=== PATIENT | female | born 1985 | race Caucasian/White ===

== ENCOUNTER 2023-06-24 16:54 | Emergency (ER) | payer MEDICAID, SELFPAY ==
--- NOTE | 2023-06-24 | ECG_ITS ---
Test Reason : bleach ingestion Blood Pressure : / mmHG Vent. Rate : 100 BPM Atrial Rate : 100 BPM P-R Int : 120 ms QRS Dur : 074 ms QT Int : 370 ms P-R-T Axes : 069 076 048 degrees QTc Int : 477 ms Normal sinus rhythm Possible Left atrial enlargement Borderline ECG When compared with ECG of 03-APR-2018 20:27, No significant change was found Referred By: Generic ED Physician Electronically Signed By:Joni Ruggiero
[2023-06-24 16:56] VITALS: BP 142/75; PULSE 109; RESP 18; TEMP 36.4; O2SAT 98; BMI 34.3
--- NOTE | 2023-06-24 17:13 | PC.NURSE ---
Posion control contacted, This RN spoke with Diego from poison control who requested labs and fluids at this time, and obs for 4-6 hours then PO challenge prior to DC.
--- NOTE | 2023-06-24 17:40 | ED.GENADULT ---
HPI - General Adult General Chief complaint: General Medical Stated complaint: drank bleach accidently Time Seen by Provider: 06/24/23 17:40 Source: patient Mode of arrival: ambulatory Limitations: no limitations History of Present Illness HPI narrative: Patient is a 37-year-old female presenting to the emergency department stating that she drank a small cup full of bleach thinking it was water. She estimates that it was approximately 4-6 oz. She states that it was regular household bleach. She currently denies any mouth, throat or abdominal pain. Denies any nausea, vomiting, diarrhea. She complains low back pain since the incident. She also complains of ?left lung pain? for the past 2 days. Poison control contacted by [employer] lead. complaint: bleach ingestion Onset (ago): minute(s) Treatments prior to arrival: none Related Data Allergies Allergy/AdvReac Type Severity Reaction Status Date / Time No Known Allergies Allergy Verified 06/24/23 17:00 [No Known Allergies*] Review of Systems Review of Systems: As per HPI. Yes all other systems are reviewed and are negative Constitutional: Constitutional: Reports as per HPI [facility] Social History Social History Advance Directives: No Advance Directives Information Provided: Yes Physical Exam ED Vital Signs: Vital Signs - 24 hr 06/24/23 16:56 Temperature 97.6 F Pulse Rate 109 H Respiratory Rate 18 Blood Pressure 142/75 H Pulse Oximetry 98 Oxygen Delivery Method Room Air BMI result Body Mass Index 34.3 Vital signs have been reviewed and appear to be correct. Blood pressure elevated. Heart rate mildly tachycardic. Respiratory rate normal. Temperature normal. Oxygen saturation normal. Const General: cooperative, healthy appearing and no acute distress Orientation/consciousness: oriented to person, oriented to place, oriented to time and patient oriented x3 Limitations: no limitations HENMT Other: no ulcerations or lesions noted to lips, tongue, or oral mucosa Head: Yes normocephalic and Yes atraumatic Ears: external ears normal General nose exam: Normal external nose present Face and sinus: Yes face symmetric Mouth: Normal oral and palatal mucosa present, lip normal, tongue normal, oropharynx normal, moist mucous membranes, no audible dysphonia, no drooling, no muffled voice, no trismus and No restricted motion Throat: Yes posterior oropharynx normal, Yes tonsils normal, Yes uvula midline and No uvular edema Eyes Pupils: Equal, round and reactive pupils present Neck Neck: Yes normal visual inspection, Yes full ROM, Yes trachea midline and Yes supple Resp Effort & Inspection: normal respiratory effort and able to speak in complete sentences Auscultation: clear to auscultation bilaterally Cardio Rate: regular rate Rhythm: regular rhythm Heart sounds: S1 normal heart sound present and S2 normal heart sound present GI Inspection: Yes normal to inspection Palpation (GI): Soft to palpation, nontender, no guarding and No Rebound tenderness present Auscultation: normoactive bowel sounds General: Yes no CVA tenderness Back/Spine/Pelvis Back: no CVA tenderness Thoracic/Lumbar Spine: thoracic and lumbar spine normal to inspection, thoraco-lumbar ROM normal, paraspinal muscle tenderness bilaterally in the upper lumbar and in the mid lumbar, No thoracic spinal tenderness and No lumbar spinal tenderness Skin General skin exam: elasticity normal and turgor normal Neuro General: oriented to person, oriented to place, oriented to time, patient oriented x3, moves all extremities, no focal motor deficits and CN's II-XI intact bilaterally Cranial nerves: Yes Equal, round and reactive pupils present Cognition (Neuro): normal cognition Extrem General: Yes full ROM, Yes no pedal edema and Yes no calf tenderness Psych Mental Status: mental status grossly normal Affect: normal affect Thought process: Normal thought process present Medical Decision Making Medical Decision Making MDM Narrative: Patient is a 37-year-old female presenting to the emergency department stating that she drank a small cup full of bleach thinking it was water. On exam patient is awake, A+Ox3, mildly tachycardic, BP mildly elevated, vital signs otherwise within normal limits, afebrile, normal neurological exam without focal deficits, physical exam findings as above. Given reported symptoms and physical exam findings, initial differential includes oral or esophageal burn injury. Kristen Núñez RN contacted poison control from triage. The recommendations were IV fluids, labs, monitoring for 4-6 hours, and PO fluid challenge prior to discharge. 18:06 Patient stating that she wishes to leave the department against medical advise. Patient advised of risks of leaving AMA up to and including . Patient verbalized understanding of this but refused to sign AMA paperwork. Differential Diagnosis Differential Diagnoses: The differential diagnosis associated with the presentation includes As per MDM. Admission/Observation Consideration of admission/observation: Escalation of care including admission/observation considered External Record Review External record reviewed: Inpatient record, Office record and Outpatient record Discharge Plan Discharge Clinical Impression: Ingestion of bleach Patient Disposition: Left Against Medical Advice
== END 2023-06-24 18:12 | disposition left against medical advice (07) ==
PROVIDERS: Emergency Provider Emergency Medicine Emergency Medical Services
DX: T54.91XA Toxic effect of unspecified corrosive substance, accidental (unintentional), initial encounter (principal); Y92.9 Unspecified place or not applicable; R00.0 Tachycardia, unspecified
CPT/HCPCS: 93005; 99283

== ENCOUNTER → 2023-06-24 17:31 | Outpatient (BNV) | payer MEDICAID, SELFPAY | PROVIDERS: Emergency Provider Emergency Medicine Emergency Medical Services; Visit Provider Internal Medicine Cardiovascular Disease | DX: R00.0 Tachycardia, unspecified (principal) | CPT/HCPCS: 93010 ==

== ENCOUNTER 2023-06-24 20:15 | Emergency (ER) | payer MEDICAID, SELFPAY ==
[2023-06-24 20:31] VITALS: BP 126/68; BP 142/102; PULSE 101; PULSE 96; RESP 18; TEMP 37; O2SAT 100; O2SAT 98; BMI 34.3
--- NOTE | 2023-06-24 21:36 | PC.NURSE ---
pt roaming halls, escorted back to room several times by this nurse, ED phlebotomy technician , and security. Pt requesting water. advised that she cannot have anything PO until evaluated by an MD.
--- NOTE | 2023-06-24 21:43 | PC.NURSE ---
pt continues to roam, unable to redirect back to exam room pt repeated stated that she needed to get air advised d/t pt privacy pt cannot be roaming hallways. pt retrieved belongings from room and exited department- charge aware
== END 2023-06-24 21:46 | disposition left against medical advice (07) ==
PROVIDERS: Emergency Provider Emergency Medicine
DX: M79.10 Myalgia, unspecified site (principal)
CPT/HCPCS: 99281

== ENCOUNTER 2023-06-24 21:59 | Emergency (ER) | payer MEDICAID, SELFPAY ==
[2023-06-24 22:02] VITALS: BP 127/70; PULSE 101; RESP 18; TEMP 36.5; O2SAT 97; BMI 35.6
[2023-06-24 22:35] LABS: MANUAL DIFF FLAG NO
[2023-06-24 22:37] LABS: Basophils Absolute Auto 0.1 X10*3/uL (0.0-0.2); Basophils Percent Auto 0.4 % (0-2); Eosinophils Absolute Auto 0.1 X10*3/uL (0.0-0.4); Eosinophils Percent Auto 0.5 % (0-4); Hematocrit 37.8 % (37.0-47.0); Imm Gran Abs Auto 0.03 X10*3/uL (0.00-0.03); Imm Gran Pct Auto 0.2 % (0.0-0.4); Lymphocytes Absolute Auto 4.1 X10*3/uL (1.2-4.9); Lymphocytes Percent Auto 32.7 % (20-40); Mean Corpuscular HGB Conc 34.4 g/dl (31.0-35.0); Mean Corpuscular Hemoglobin 31.5 pg (27.0-33.0); Mean Corpuscular Volume 91.5 fL (80.0-98.0); Mean Platelet Volume 8.8 fL (9.4-12.3); Monocytes Absolute Auto 1.1 X10*3/uL (0.1-1.2); Monocytes Percent Auto 9.1 % (2-11); Neutrophils Absolute Auto 7.1 x10*3/uL (2.0-8.3); Neutrophils Percent Auto 57.1 % (45-73); Platelet Count 259 X10*3/uL (160-400); Red Blood Count 4.13 X10*6/uL (4.20-5.50); Red Cell Distribution Width 12.7 % (11.0-16.0); White Blood Count 12.5 X10*3/uL (4.8-10.8)
[2023-06-24 22:52] LABS: Alanine Aminotransferase 86 U/L (0-31); Albumin Level 4.3 g/dL (3.5-5.0); Alkaline Phosphatase 73 U/L (39-117); Anion Gap 13 (12-20); Aspartate Amino Transferase 158 U/L (5-31); Blood Urea Nitrogen 18 mg/dL (9-16); Calcium 9.8 mg/dL (8.4-10.2); Carbon Dioxide 26 mmol/L (22-29); Chloride 104 mmol/L (96-108); Estimated Glomerular Filt Rate > 60; Glucose Random 105 mg/dL (60-115); Potassium 3.8 mmol/L (3.3-5.1); Sodium 139 mmol/L (135-145); Total Protein 7.4 g/dL (6.5-8.0)
[2023-06-24 22:53] LABS: COVID-19 Test Negative (Negative); IDNOW Serial# 08D9AD1C; IDNOW Serial# 152EDE1D; Influenza A Negative (Negative); Influenza B2 Negative (Negative)
[2023-06-24 23:20] LABS: Ethanol < 10 mg/dL
== END 2023-06-25 00:45 | disposition left against medical advice (07) ==
PROVIDERS: Emergency Provider Emergency Medicine Emergency Medical Services
DX: M79.10 Myalgia, unspecified site (principal); Z11.52 Encounter for screening for COVID-19; Z79.899 Other long term (current) drug therapy
CPT/HCPCS: 80053; 80307; 85025; 87502; 87635; 99281; 99283

== ENCOUNTER 2023-06-25 01:25 | Emergency (ER) | payer MEDICAID, SELFPAY ==
[2023-06-25 01:58] VITALS: BP 121/63; PULSE 95; RESP 16; TEMP 37.2; O2SAT 100; BMI 34.3
--- NOTE | 2023-06-25 02:26 | ED.GENADULT ---
HPI - General Adult General Chief complaint: General Medical Stated complaint: gen med Time Seen by Provider: 06/25/23 02:26 Source: patient Mode of arrival: ambulatory Limitations: no limitations History of Present Illness HPI narrative: Patient homeless been here 3 times in and out of the ER with multiple complaints labs were done at 22:00 which were stable Related Data Allergies Allergy/AdvReac Type Severity Reaction Status Date / Time No Known Allergies Allergy Verified 06/25/23 01:58 [No Known Allergies*] Review of Systems Review of Systems: Yes all other systems are reviewed and are negative [facility] Social History Social History Advance Directives: No Advance Directives Information Provided: No Physical Exam ED Vital Signs: Vital Signs - 24 hr 06/25/23 01:58 Temperature 98.9 F Pulse Rate 95 Respiratory Rate 16 Blood Pressure 121/63 Pulse Oximetry 100 Oxygen Delivery Method Room Air BMI result Body Mass Index 34.3 Appearance: Alert. Oriented X3. No acute distress. Eyes: PERRLA, No Nystagmus ENT: Pharynx normal. Oral Mucosa moist Neck: Normal inspection. Neck supple. CVS: Normal heart rate and rhythm. Pulses normal. Respiratory: No respiratory distress. Equal air entry bilateral, no wheezing/rales/rhonchi Abdomen: Soft and nontender. Bowel sounds are present, no mass palpable, no CVA tenderness Skin: Skin warm and dry. Normal skin color. Normal skin turgor. Extremities: No lower extremity edema. No calf tenderness Neuro: Oriented X 3. No motor deficit. No sensory deficit.No cerebellar signs , cranial nerves II-XII intact Medical Decision Making Medical Decision Making MDM Narrative: Patient homeless looking for place to stay in the night no active complaints lab was done during previous visit 2 hours ago which were normal patient to be discharged follow with social welfare research worker Discharge Plan Discharge Clinical Impression: Homeless Patient Disposition: Home, Self-Care Instructions: Normal Exam (ED) Additional Instructions: You Do not have any medical reason to stay in the ER
--- NOTE | 2023-06-25 02:41 | PC.NURSE ---
pt refused discharge saying I need to be checked out more> Security at bedside for assistance
== END 2023-06-25 02:46 | disposition home or self-care (01) ==
PROVIDERS: Emergency Provider Internal Medicine
DX: Z59.02 Unsheltered homelessness (principal)
CPT/HCPCS: 99282; 99284

== ENCOUNTER 2023-12-31 21:20 | Emergency (ER) | payer MEDICAID, SELFPAY ==
--- NOTE | ~2023-12-31 | XR_ITS ---
EXAMINATION: XR CHEST CLINICAL INFORMATION: Dyspnea and cough COMPARISON: None available. TECHNIQUE: Frontal view of the chest was obtained. FINDINGS: No significant abnormality is noted involving the heart, lungs, mediastinum, bony thorax or soft tissues. XR/XR chest 1V IMPRESSION: Unremarkable examination. Electronically signed by: Lyndon Sofia MD 12/31/2023 10:53 PM EDT
[2023-12-31 21:33] VITALS: BP 140/84; PULSE 104; RESP 20; TEMP 37.2; O2SAT 97; BMI 37.1
--- NOTE | 2023-12-31 21:38 | ECG_ITS ---
Test Reason : SOB Blood Pressure : / mmHG Vent. Rate : 109 BPM Atrial Rate : 109 BPM P-R Int : 124 ms QRS Dur : 082 ms QT Int : 352 ms P-R-T Axes : 075 086 030 degrees QTc Int : 474 ms Sinus tachycardia Nonspecific ST abnormality Abnormal ECG When compared with ECG of 24-JUN-2023 17:31, No significant change was found Referred By: Generic ED Physician Electronically Signed By:MARLENE BETTENCOURT
--- NOTE | 2023-12-31 21:59 | MHC.EDTECH ---
Patient brought into triage area,EKG taken per order and signed by provider,Labs/Sars/and Urine obtained and sent to lab.
[2023-12-31 22:01] LABS: MANUAL DIFF FLAG NO
[2023-12-31 22:02] LABS: Basophils Percent Auto 0.4 % (0-2); Eosinophils Absolute Auto 0.1 X10*3/uL (0.0-0.4); Eosinophils Percent Auto 0.5 % (0-4); Hematocrit 38.6 % (37.0-47.0); Hemoglobin 13.2 g/dl (12.0-16.0); Imm Gran Abs Auto 0.02 X10*3/uL (0.00-0.03); Imm Gran Pct Auto 0.2 % (0.0-0.4); Lymphocytes Absolute Auto 3.2 X10*3/uL (1.2-4.9); Lymphocytes Percent Auto 34.3 % (20-40); Mean Corpuscular HGB Conc 34.2 g/dl (31.0-35.0); Mean Corpuscular Volume 93.7 fL (80.0-98.0); Mean Platelet Volume 9.7 fL (9.4-12.3); Monocytes Absolute Auto 0.5 X10*3/uL (0.1-1.2); Monocytes Percent Auto 5.8 % (2-11); Neutrophils Absolute Auto 5.5 x10*3/uL (2.0-8.3); Neutrophils Percent Auto 58.8 % (45-73); Platelet Count 265 X10*3/uL (160-400); Red Blood Count 4.12 X10*6/uL (4.20-5.50); Red Cell Distribution Width 12.9 % (11.0-16.0); White Blood Count 9.4 X10*3/uL (4.8-10.8)
[2023-12-31 22:10] LABS: UPreg QC Valid YES; Urine Pregnancy NEGATIVE (NEGATIVE)
[2023-12-31 22:15] LABS: Anion Gap 16 (12-20); Blood Urea Nitrogen 11 mg/dL (9-16); Calcium 9.6 mg/dL (8.4-10.2); Carbon Dioxide 20 mmol/L (22-29); Chloride 109 mmol/L (96-108); Estimated Glomerular Filt Rate > 60; Glucose Random 120 mg/dL (60-115); Potassium 3.2 mmol/L (3.3-5.1); Sodium 142 mmol/L (135-145)
[2023-12-31 22:25] LABS: Troponin-I High Sensitivity < 2.7 ng/L (<3.5-17.0)
--- NOTE | 2023-12-31 22:30 | ED.SOB ---
HPI - SOB/Dyspnea General Chief Complaint: Dyspnea Stated Complaint: Difficulty breathing Time Seen by Provider: 12/31/23 22:01 Source: patient Mode of arrival: ambulatory Limitations: no limitations History of Present Illness ED Provider: chata TRUJILLO Narrative: Patient's history of asthma been feeling shortness of breath with chest tightness for last 4 days with occasional cough using inhaler without much relief denies any sick contact no history of coronary artery disease no history of PE Related Data Previous Rx's ?Medication ?Instructions ?Recorded albuterol sulfate 90 mcg/actuation 2 puff inhalation Q6H PRN 12/31/23 aerosol inhaler shortness of breath or wheezing #8.5 grams prednisone 20 mg tablet 40 mg (2 x 20 mg) PO DAILY #10 tabs 12/31/23 Allergies Allergy/AdvReac Type Severity Reaction Status Date / Time No Known Allergies Allergy Verified 12/31/23 21:35 [No Known Allergies*] Review of Systems Review of Systems: Yes all other systems are reviewed and are negative [facility] Social History Social History Advance Directives: No Advance Directives Information Provided: No Physical Exam Vital Signs: Vital Signs: Last Vital Signs Temp 99.0 F 12/31/23 23:37 Pulse 104 H 12/31/23 23:37 Resp 20 12/31/23 23:37 BP 140/84 H 12/31/23 23:37 Pulse Ox 97 12/31/23 23:37 O2 Del Method Room Air 12/31/23 23:37 BMI result Body Mass Index 37.1 Appearance: Alert. Oriented X3. No acute distress. Eyes: PERRLA, No Nystagmus ENT: Pharynx normal. Oral Mucosa moist Neck: Normal inspection. Neck supple. CVS: Normal heart rate and rhythm. Pulses normal. Respiratory: No respiratory distress. Equal air entry bilateral, prolonged expiration no rales Abdomen: Soft and nontender. Bowel sounds are present, no mass palpable, no CVA tenderness Skin: Skin warm and dry. Normal skin color. Normal skin turgor. Extremities: No lower extremity edema. No calf tenderness Neuro: Oriented X 3. No motor deficit. No sensory deficit.No cerebellar signs , cranial nerves II-XII intact Medications Administered Discontinued Medications Generic Name Dose Route Start Last Admin Trade Name Freq PRN Reason Stop Dose Admin Albuterol/Ipratropium 3 ml 12/31/23 22:29 12/31/23 22:49 Albuterol/Iprat 2.5/0.5mg 3 Ml Ampul.Neb INHALE 12/31/23 22:30 3 ml ONCE ONE Administration Prednisone 60 mg 12/31/23 22:29 12/31/23 22:34 Prednisone 20 Mg Tablet PO 12/31/23 22:30 60 mg ONCE ONE Administration Medical Decision Making Medical Decision Making [facility] Narrative: Patient with asthma with shortness a breath and chest tightness clinically patient is asthma low risk for PE patient ambulatory with saturating 95% at room air chest x-ray negative for pneumonia will prescribe prednisone and advised to continues use albuterol inhaler Differential Diagnosis Differential Diagnoses: The differential diagnosis associated with the presentation includes Asthma/viral infection/anxiety/PE Lab Data [facility] Lab Attestation statement: I reviewed the patient's lab results. 12/31/23 21:50 12/31/23 21:50 Labs: Lab Results 12/31/23 12/31/23 Range/Units 21:50 21:55 WBC 9.4 (4.8-10.8) X10*3/uL RBC 4.12 L (4.20-5.50) X10*6/uL Hgb 13.2 (12.0-16.0) g/dl Hct 38.6 (37.0-47.0) % MCV 93.7 (80.0-98.0) fL MCH 32.0 (27.0-33.0) pg MCHC 34.2 (31.0-35.0) g/dl RDW 12.9 (11.0-16.0) % Plt Count 265 (160-400) X10*3/uL MPV 9.7 (9.4-12.3) fL Immature Gran % (Auto) 0.2 (0.0-0.4) % Neut % (Auto) 58.8 (45-73) % Lymph % (Auto) 34.3 (20-40) % [place] % (Auto) 5.8 (2-11) % Eos % (Auto) 0.5 (0-4) % Baso % (Auto) 0.4 (0-2) % Lymph # (Auto) 3.2 (1.2-4.9) X10*3/uL [place] # (Auto) 0.5 (0.1-1.2) X10*3/uL Eos # (Auto) 0.1 (0.0-0.4) X10*3/uL Baso # (Auto) 0.0 (0.0-0.2) X10*3/uL Abs Immat Gran (auto) 0.02 (0.00-0.03) X10*3/uL Absolute Neuts (auto) 5.5 (2.0-8.3) x10*3/uL Absolute Nucleated RBC 0.000 (0.0-0.012) X10*3/uL Nucleated RBC % (auto) 0.0 (0.0-0.2) /100WBC Sodium 142 (135-145) mmol/L Potassium 3.2 L (3.3-5.1) mmol/L Chloride 109 H (96-108) mmol/L Carbon Dioxide 20 L (22-29) mmol/L Anion Gap 16 (12-20) BUN 11 (9-16) mg/dL Creatinine 0.85 (0.5-1.4) mg/dL Estim Creat Clear Calc 103.0 Estimated GFR > 60 Random Glucose 120 H (60-115) mg/dL Calcium 9.6 (8.4-10.2) mg/dL Troponin I High Sens < 2.7 (<3.5-17.0) ng/L Urine Test NEGATIVE (NEGATIVE) Influenza Type A (PCR) NEGATIVE (Negative) Influenza Type B (PCR) NEGATIVE (Negative) RSV RNA Qual (PCR) NEGATIVE (Negative) SARS-CoV-2 RNA (RT-PCR) NEGATIVE (Negative) Independent Interpretation I performed an independent interpretation of an: EKG Interpretation: Sinus tachycardia heart rate 109 beats per minute nonspecific STT wave changes no acute ischemic changes Radiology Impression Discussion of test interpretation with radiology: I have reviewed the radiologist's reading. Discharge Plan Discharge Clinical Impression: Asthma with exacerbation Patient Disposition: Home, Self-Care Instructions: Asthma (ED) Additional Instructions: Continue to use your albuterol 2 puffs every 4-6 hours as needed Prednisone as prescribed Follow with PCP as needed Prescriptions: New prednisone 20 mg tablet 40 mg PO DAILY Qty: 10 0RF albuterol sulfate 90 mcg/actuation HFA aerosol inhaler 2 puff inhalation Q6H PRN (Reason: shortness of breath or wheezing) Qty: 8.5 0RF Stand Alone Forms: Work/School Release Interventions: ED Discharge Assessment Last Done: 12/31/23 23:37 Discharge Date/Time: 12/31/23 23:38 Print Language: Macedonian
[2023-12-31] MEDS: predniSONE 20 MG TABLET 60 MG PO (22:34)
[2023-12-31 22:40] LABS: Influenza A PCR NEGATIVE (Negative); Influenza B PCR NEGATIVE (Negative); Resp Syncy Virus RNA Qual PCR NEGATIVE (Negative); SARS COV2 PCR INHOUSE NEGATIVE (Negative)
[2023-12-31] MEDS: Albuterol/Iprat 2.5/0.5MG 3 ML AMPUL.NEB INHALE (22:49)
[2023-12-31 23:37] VITALS: BP 140/84; PULSE 104; RESP 20; TEMP 37.2; O2SAT 97
== END 2023-12-31 23:38 | disposition home or self-care (01) ==
PROVIDERS: Emergency Provider Internal Medicine
DX: J45.901 Unspecified asthma with (acute) exacerbation (principal); R06.02 Shortness of breath; R07.89 Other chest pain; Z03.818 Encounter for observation for suspected exposure to other biological agents ruled out; Z79.899 Other long term (current) drug therapy
CPT/HCPCS: 0241U; 36415; 71045; 80048; 81025; 84484; 85025; 93005; 99283; 99284

== ENCOUNTER 2024-01-08 04:18 | Emergency (ER) | payer MEDICAID, SELFPAY ==
--- NOTE | ~2024-01-08 | XR_ITS ---
EXAMINATION: XR CHEST CLINICAL INFORMATION: Cough and difficulty breathing. COMPARISON: December 31, 2023. TECHNIQUE: Frontal view of the chest was obtained. FINDINGS: No significant abnormality is noted involving the heart, lungs, mediastinum, bony thorax or soft tissues. XR/XR chest 1V IMPRESSION: Unremarkable examination. Electronically signed by: Tommy Blanc MD 01/08/2024 05:03 AM EDT
[2024-01-08 04:26] VITALS: BP 122/77; PULSE 107; RESP 17; TEMP 36.9; O2SAT 93; BMI 35.4
[2024-01-08 05:23] LABS: Influenza A PCR NEGATIVE (Negative); Influenza B PCR NEGATIVE (Negative); Resp Syncy Virus RNA Qual PCR NEGATIVE (Negative); SARS COV2 PCR INHOUSE NEGATIVE (Negative)
[2024-01-08 06:02] VITALS: BP 126/72; PULSE 87; RESP 16; TEMP 36.8; O2SAT 95
[2024-01-08 07:23] LABS: MANUAL DIFF FLAG NO
[2024-01-08] MEDS: methylPREDNISolone Sod Succ 125 MG/2 ML VIAL 60 MG IVPUSH (07:23)
[2024-01-08 07:24] LABS: Basophils Percent Auto 0.4 % (0-2); Eosinophils Absolute Auto 0.3 X10*3/uL (0.0-0.4); Eosinophils Percent Auto 3.5 % (0-4); Hematocrit 42.6 % (37.0-47.0); Hemoglobin 14.2 g/dl (12.0-16.0); Imm Gran Abs Auto 0.02 X10*3/uL (0.00-0.03); Imm Gran Pct Auto 0.2 % (0.0-0.4); Lymphocytes Absolute Auto 1.9 X10*3/uL (1.2-4.9); Lymphocytes Percent Auto 22.4 % (20-40); Mean Corpuscular HGB Conc 33.3 g/dl (31.0-35.0); Mean Corpuscular Hemoglobin 31.4 pg (27.0-33.0); Mean Corpuscular Volume 94.2 fL (80.0-98.0); Mean Platelet Volume 9.8 fL (9.4-12.3); Monocytes Absolute Auto 0.7 X10*3/uL (0.1-1.2); Monocytes Percent Auto 8.7 % (2-11); Neutrophils Absolute Auto 5.4 x10*3/uL (2.0-8.3); Neutrophils Percent Auto 64.8 % (45-73); Platelet Count 236 X10*3/uL (160-400); Red Blood Count 4.52 X10*6/uL (4.20-5.50); Red Cell Distribution Width 13.2 % (11.0-16.0); White Blood Count 8.3 X10*3/uL (4.8-10.8)
[2024-01-08] MEDS: Albuterol/Iprat 2.5/0.5MG 3 ML AMPUL.NEB INHALE (07:29)
[2024-01-08 07:30] VITALS: PULSE 84; RESP 18; O2SAT 97
[2024-01-08 07:34] LABS: IDNOW Serial# 08D9AD1C; Strep A Nucleic Acid Negative (Negative)
[2024-01-08 07:43] LABS: Anion Gap 15 (12-20); Blood Urea Nitrogen 11 mg/dL (9-16); Calcium 9.7 mg/dL (8.4-10.2); Carbon Dioxide 23 mmol/L (22-29); Chloride 106 mmol/L (96-108); Creatinine Clr Calc Pharmacy 102.9; Estimated Glomerular Filt Rate > 60; Glucose Random 84 mg/dL (60-115); Potassium 3.8 mmol/L (3.3-5.1); Sodium 140 mmol/L (135-145)
--- NOTE | 2024-01-08 08:08 | ED.SOB ---
HPI - SOB/Dyspnea General Chief Complaint: Dyspnea Stated Complaint: Diff Breathing Asthma Time Seen by Provider: 01/08/24 06:33 Source: patient, RN notes reviewed and old records reviewed Mode of arrival: ambulatory History of Present Illness ED Provider: Barbi Alvarado PA-C [facility] Narrative: 38-year-old female with a past medical history of asthma presenting to the ED complaining of productive cough, SOB, chest discomfort when coughing x1 week. Patient was recently seen and treated in our ED on 12/30 for similar symptoms prescribed prednisone and albuterol inhaler which she was unable to chicken picker from pharmacy. Denies fever, chills, pedal edema, recent travel, sick contacts. Related Data Previous Rx's ?Medication ?Instructions ?Recorded albuterol sulfate 90 mcg/actuation 2 puff inhalation Q6H PRN 12/31/23 aerosol inhaler shortness of breath or wheezing #8.5 grams prednisone 20 mg tablet 40 mg (2 x 20 mg) PO DAILY #10 tabs 12/31/23 albuterol sulfate 90 mcg/actuation 2 puff inhalation Q4-6H PRN 01/08/24 aerosol inhaler shortness of breath or wheezing #6.7 grams hydrocortisone 0.5 % topical cream 1 appl topical BID PRN itching 01/08/24 #28.4 grams prednisone 20 mg tablet 40 mg (2 x 20 mg) PO DAILY 5 days 01/08/24 #10 tabs Allergies Allergy/AdvReac Type Severity Reaction Status Date / Time No Known Allergies Allergy Verified 01/08/24 04:29 [No Known Allergies*] Review of Systems Review of Systems: Yes all other systems are reviewed and are negative Constitutional: Constitutional: Reports as per [facility] Past Medical History Attestation statement: The following information was validated with the patient. Source: old records reviewed Social History Social History Advance Directives: No Advance Directives Information Provided: No Do you have a plan to hurt others: No Plan Patient : No Physical Exam Vital Signs: Vital Signs: Last Vital Signs Temp 98.2 F 01/08/24 06:02 Pulse 84 01/08/24 07:30 Resp 18 01/08/24 07:30 BP 126/72 01/08/24 06:02 Pulse Ox 95 01/08/24 06:02 O2 Del Method Room Air 01/08/24 06:02 BMI result Body Mass Index 35.4 Const: General: cooperative, healthy appearing and no acute distress Orientation/consciousness: patient oriented x3 Limitations: no limitations HEENT: Head: Yes normal to inspection and Yes atraumatic Ears: hearing grossly normal bilaterally General nose exam: Normal external nose present Face and sinus: Yes normal facial exam Mouth: Normal oral and palatal mucosa present Throat: Yes posterior oropharynx normal, Yes tonsils normal, Yes uvula midline, No uvula laterally displaced and No uvular edema Eyes: General: appearance normal, both eyes and all related structures EOM: EOMs intact bilaterally Neck: Neck: Yes normal visual inspection and Yes no meningeal signs Resp: Effort & Inspection: normal respiratory effort, no respiratory distress and no stridor Auscultation: wheezes expiratory wheezes and throughout Cardio: Rate: regular rate Heart sounds: S1 normal heart sound present and S2 normal heart sound present GI: Inspection: Yes normal to inspection Palpation (GI): Soft to palpation, nontender, no guarding and not rigid Skin: Rashes: no rashes Wounds: no wounds Neuro: General: patient oriented x3, tone normal and no meningeal signs Cranial nerves: Yes CN's II-XII intact bilaterally Gait exam (Neuro): Normal gait present Extrem: General: Yes normal to inspection, Yes no pedal edema and Yes no calf tenderness Course Course Course Narrative: -0812--no leukocytosis. Labs otherwise reassuring. Viral studies negative. Rapid strep negative. XR chest 1V IMPRESSION: Unremarkable examination. >0817--on re-evaluation after DuoNeb and IV Solu-Medrol patient reports symptomatic improvement, lungs CTA -patient never picked up prescription for prednisone/inhaler, will send additional prescription in case this is still not off the pharmacy. Discussed importance of compliance with medications. Patient also reports poison lavon to bilateral LE and right thigh, appreciable erythematous patches/crusting appreciated will send hydrocortisone cream Results discussed with patient including worrisome signs and symptoms and strict return precautions, and when to return to the emergency department. They verbalized understanding and feel safe for discharge at this time. Medications Administered Discontinued Medications Generic Name Dose Route Start Last Admin Trade Name Freq PRN Reason Stop Dose Admin Albuterol/Ipratropium 3 ml 01/08/24 07:07 01/08/24 07:29 Albuterol/Iprat 2.5/0.5mg 3 Ml Ampul.Neb INHALE 01/08/24 07:08 3 ml ONCE ONE Administration Methylprednisolone Sodium Succinate 60 mg 01/08/24 06:55 01/08/24 07:23 Methylprednisolone Sod Succ 125 Mg/2 Ml Vial IVPUSH 01/08/24 06:56 60 mg ONCE ONE Administration Medical Decision Making Medical Decision Making [facility] Narrative: 38-year-old female with a past medical history of asthma presenting to the ED complaining of productive cough, SOB, chest discomfort when coughing x1 week. On exam initially tachycardic, satting 93% on RA, diffuse expiratory wheeze appreciated. Concern for asthma exacerbation vs pneumonia vs viral illness. Lower suspicion for ACS/PE. Unlikely CHF Plan: EKG, labs, CXR, viral testing Please refer to course for remaining clinical decision making, interpretation of labs/imaging results, and discussions with consultants and/or family members. Differential Diagnosis Differential Diagnoses: The differential diagnosis associated with the presentation includes As above Admission/Observation Consideration of admission/observation: Escalation of care including admission/observation considered Lab Data [facility] Lab Attestation statement: I reviewed the patient's lab results. 01/08/24 07:16 01/08/24 07:16 Labs: Lab Results 01/08/24 01/08/24 Range/Units 04:39 07:16 WBC 8.3 (4.8-10.8) X10*3/uL RBC 4.52 (4.20-5.50) X10*6/uL Hgb 14.2 (12.0-16.0) g/dl Hct 42.6 (37.0-47.0) % MCV 94.2 (80.0-98.0) fL MCH 31.4 (27.0-33.0) pg MCHC 33.3 (31.0-35.0) g/dl RDW 13.2 (11.0-16.0) % Plt Count 236 (160-400) X10*3/uL MPV 9.8 (9.4-12.3) fL Immature Gran % (Auto) 0.2 (0.0-0.4) % Neut % (Auto) 64.8 (45-73) % Lymph % (Auto) 22.4 (20-40) % [place] % (Auto) 8.7 (2-11) % Eos % (Auto) 3.5 (0-4) % Baso % (Auto) 0.4 (0-2) % Lymph # (Auto) 1.9 (1.2-4.9) X10*3/uL [place] # (Auto) 0.7 (0.1-1.2) X10*3/uL Eos # (Auto) 0.3 (0.0-0.4) X10*3/uL Baso # (Auto) 0.0 (0.0-0.2) X10*3/uL Abs Immat Gran (auto) 0.02 (0.00-0.03) X10*3/uL Absolute Neuts (auto) 5.4 (2.0-8.3) x10*3/uL Absolute Nucleated RBC 0.000 (0.0-0.012) X10*3/uL Nucleated RBC % (auto) 0.0 (0.0-0.2) /100WBC Sodium 140 (135-145) mmol/L Potassium 3.8 (3.3-5.1) mmol/L Chloride 106 (96-108) mmol/L Carbon Dioxide 23 (22-29) mmol/L Anion Gap 15 (12-20) BUN 11 (9-16) mg/dL Creatinine 0.83 (0.5-1.4) mg/dL Estim Creat Clear Calc 102.9 Estimated GFR > 60 Random Glucose 84 (60-115) mg/dL Calcium 9.7 (8.4-10.2) mg/dL Influenza Type A (PCR) NEGATIVE (Negative) Influenza Type B (PCR) NEGATIVE (Negative) RSV RNA Qual (PCR) NEGATIVE (Negative) SARS-CoV-2 RNA (RT-PCR) NEGATIVE (Negative) S. pyogenes GrpA TERA Negative (Negative) Independent Interpretation I performed an independent interpretation of an: EKG (My interpretation EKG normal sinus rhythm rate of 92. UT interval 124. QTC 84. No significant change when compared to prior) and Plain X-Ray Radiology Impression Discussion of test interpretation with radiology: I have reviewed the radiologist's reading. External Record Review External record reviewed: Inpatient record, Office record, Outpatient record, Prior outpatient labs, Prior outpatient radiology, Primary care record and Outside ED record Tests considered The following testing was considered but not selected: As above Prescription Management I considered prescription management with: Other Chronic Conditions Patient?s care impacted by: Other (Asthma) Critical Care Time Critical Care Time Critical Care Time: Yes Total Critical Care Time: 35 Attestation: I have personally provided critical care time exclusive of time spent on separately billable procedures. Time includes review of lab data, radiology results, discussion with consultants, and monitoring for potential decompensation. Intervention performed as documented. Discharge Plan Discharge Clinical Impression: Asthma with exacerbation Patient Disposition: Home, Self-Care Instructions: Asthma (DC) Additional Instructions: Your blood work and x-ray are reassuring Please chicken picker prescriptions from the pharmacy, and take as prescribed Follow-up with her doctor If symptoms persist or worsening of constant worsening shortness of breath, fever/chills return to the ED Prescriptions: New hydrocortisone 0.5 % cream 1 appl topical BID PRN (Reason: itching) Qty: 28.4 0RF prednisone 20 mg tablet 40 mg PO DAILY 5 Days Qty: 10 0RF albuterol sulfate 90 mcg/actuation HFA aerosol inhaler 2 puff inhalation Q4-6H PRN (Reason: shortness of breath or wheezing) Qty: 6.7 0RF No Action prednisone 20 mg tablet 40 mg PO DAILY Qty: 10 0RF albuterol sulfate 90 mcg/actuation HFA aerosol inhaler 2 puff inhalation Q6H PRN (Reason: shortness of breath or wheezing) Qty: 8.5 0RF Referrals: [facility] [place] Primary [facility], [facility] [Provider Group] [facility] [place] Primary Care,[facility] [Provider Group] Physician,None [Primary Care Provider] - Print Language: Israeli
--- NOTE | 2024-01-08 08:11 | ECG_ITS ---
Test Reason : SOB Blood Pressure : / mmHG Vent. Rate : 092 BPM Atrial Rate : 092 BPM P-R Int : 124 ms QRS Dur : 084 ms QT Int : 372 ms P-R-T Axes : 074 081 -44 degrees QTc Int : 460 ms Normal sinus rhythm Biatrial enlargement Nonspecific ST and T wave abnormality Abnormal ECG When compared with ECG of 31-DEC-2023 21:38, T wave amplitude has decreased in Lateral leads Referred By: Barbi Alvarado Electronically Signed By:MARLENE BETTENCOURT
[2024-01-08 08:40] VITALS: BP 145/75; PULSE 88; RESP 19; TEMP 36.6; O2SAT 98
== END 2024-01-08 08:42 | disposition home or self-care (01) ==
PROVIDERS: Physician Assistant; Emergency Provider Emergency Medicine
DX: J45.901 Unspecified asthma with (acute) exacerbation (principal); R05.9 Cough, unspecified; Z03.818 Encounter for observation for suspected exposure to other biological agents ruled out
CPT/HCPCS: 0241U; 71045; 80048; 85025; 87651; 93005; 94640; 96374; 99284; 99285; J2919

== ENCOUNTER 2024-01-22 13:49 | Emergency (ER) | payer MEDICAID, SELFPAY ==
[2024-01-22 14:19] VITALS: BP 118/87; PULSE 79; RESP 18; TEMP 36.4; O2SAT 99; BMI 37.8
--- NOTE | 2024-01-22 14:23 | ED_ITS ---
HPI - Extremity Problem General Chief complaint: Extremity Injury, Lower Stated complaint: swollen feet Time Seen by Provider: 01/22/24 14:46 Source: patient Mode of arrival: ambulatory Limitations: no limitations History of Present Illness ED Provider: Kaye Todd PA-C HPI Narrative: 38 yo female presents to the ER for evaluation of redness and swelling to her toes and feet for the last 2-3 days. history of cellulitis that presented in a similar way in the past. she denies and trauma or injury. no IV drug use. no hx DM. she reports redness and pain started in the bilateral great toes, mostly on the bottom of the foot and then radiated to the top of the foot. no open wounds. no joint swelling. no hx gout. MD Complaint: extremity pain and extremity swelling Onset (ago): day(s) (3) Pain Consistency: constant Location: toe Quality: aching Radiation: proximal Relieving factors: nothing Exacerbating factors: nothing Associated symptoms: denies other symptoms Related Data Previous Rx's ?Medication ?Instructions ?Recorded albuterol sulfate 90 mcg/actuation 2 puff inhalation Q6H PRN 12/31/23 aerosol inhaler shortness of breath or wheezing #8.5 grams prednisone 20 mg tablet 40 mg (2 x 20 mg) PO DAILY #10 tabs 12/31/23 albuterol sulfate 90 mcg/actuation 2 puff inhalation Q4-6H PRN 01/08/24 aerosol inhaler shortness of breath or wheezing #6.7 grams hydrocortisone 0.5 % topical cream 1 appl topical BID PRN itching 01/08/24 #28.4 grams prednisone 20 mg tablet 40 mg (2 x 20 mg) PO DAILY 5 days 01/08/24 #10 tabs benzonatate 100 mg capsule 100 mg PO TID PRN cough #30 caps 01/22/24 cephalexin 500 mg capsule 500 mg PO Q6H 7 days #28 caps 01/22/24 doxycycline monohydrate 100 mg 100 mg PO BID #14 caps 01/22/24 capsule Allergies Allergy/AdvReac Type Severity Reaction Status Date / Time No Known Allergies Allergy Verified 01/22/24 14:22 [No Known Allergies*] Review of Systems Review of Systems: Yes all other systems are reviewed and are negative PMFSH Social History Social History Advance Directives: No Do you have a plan to hurt others: No Plan Physical Exam Vital Signs: Vital Signs: Last Vital Signs Temp 97.6 F 01/22/24 14:19 Pulse 79 01/22/24 14:19 Resp 18 01/22/24 14:19 BP 118/87 01/22/24 14:19 Pulse Ox 99 01/22/24 14:19 O2 Del Method Room Air 01/22/24 14:19 BMI result Body Mass Index 37.8 Appearance: Alert. Oriented X3. No acute distress. HEENT: normal inspection CVS: Normal heart rate and rhythm. Pulses normal. Respiratory: No respiratory distress. Skin: Skin warm and dry. Normal skin color. Normal skin turgor. No rashes. Extremities: bilateral great toe redness and tenderness of the plantar aspect, no MTP tenderness. normal pulses. no significant swelling. Neuro: Oriented X 3. No motor deficit. No sensory deficit. Medical Decision Making Medical Decision Making MDM Narrative: 38 y/o female with history of cellulitis on her feet presenting to the ER for evaluation of 2-3 days of toe and foot redness, swelling and pain, no trauma. no evidence of gout on exam. no significant tenderness or limited ROM. no open wounds. will treat for possible early cellulitis. return precautions discussed. stable for d/c home. Differential Diagnosis Differential Diagnoses: The differential diagnosis associated with the presentation includes cellulitis, gout, PVD, PAD, septic joint, RA External Record Review External record reviewed: Outpatient record and Prior outpatient labs Tests considered The following testing was considered but not selected: xr feet considered, no trauma Prescription Management I considered prescription management with: Pain Medication and Antibiotic Critical Care Time Critical Care Time Critical Care Time: No Discharge Plan Discharge Clinical Impression: Cellulitis Qualifiers: Site of cellulitis: extremity Site of cellulitis of extremity: toe Laterality: unspecified laterality Qualified Code(s): L03.039 - Cellulitis of unspecified toe Patient Disposition: Home, Self-Care Instructions: Cellulitis (DC), Warm Compress or Soak (ED) Additional Instructions: Take the prescribed antibiotics as directed, complete the entire course and do not miss any doses Use warm soapy soaks for the next 3 days Elevate your feet when able. Rest and drink plenty of fluids. Follow up with your doctor If you develop new or worsening symptoms call 911 or come back to the ER for further evaluation. Prescriptions: New cephalexin 500 mg capsule 500 mg PO Q6H 7 Days Qty: 28 0RF doxycycline monohydrate 100 mg capsule 100 mg PO BID Qty: 14 0RF benzonatate 100 mg capsule 100 mg PO TID PRN (Reason: cough) Qty: 30 0RF No Action prednisone 20 mg tablet 40 mg PO DAILY Qty: 10 0RF albuterol sulfate 90 mcg/actuation HFA aerosol inhaler 2 puff inhalation Q6H PRN (Reason: shortness of breath or wheezing) Qty: 8.5 0RF hydrocortisone 0.5 % cream 1 appl topical BID PRN (Reason: itching) Qty: 28.4 0RF prednisone 20 mg tablet 40 mg PO DAILY 5 Days Qty: 10 0RF albuterol sulfate 90 mcg/actuation HFA aerosol inhaler 2 puff inhalation Q4-6H PRN (Reason: shortness of breath or wheezing) Qty: 6.7 0RF Referrals: [facility] [Provider Group] [facility] [place] [facility]] Stand Alone Forms: Work/School Release Print Language: Icelandic
== END 2024-01-22 15:23 | disposition home or self-care (01) ==
PROVIDERS: Emergency Provider Student in an Organized Health Care Education/Training Program
DX: L03.039 Cellulitis of unspecified toe (principal); R60.0 Localized edema
CPT/HCPCS: 99281; 99282

== ENCOUNTER 2024-02-03 15:36 | Emergency (ER) | payer MEDICAID, SELFPAY ==
--- NOTE | ~2024-02-03 | XR_ITS ---
EXAMINATION: XR CHEST CLINICAL INFORMATION: 38-year-old female with cough COMPARISON: January 08, 2024 TECHNIQUE: 2 views of the chest were obtained. FINDINGS: No significant abnormality is noted involving the heart, lungs, mediastinum, bony thorax or soft tissues. XR/XR chest 2V IMPRESSION: Unremarkable examination. No interval change Electronically signed by: Faviola Jensen MD 02/03/2024 05:47 PM EDT RP
--- NOTE | 2024-02-03 16:08 | ED_ITS ---
HPI - General Adult General Chief complaint: Upper Respiratory Symptoms Stated complaint: Spitting up a lot of fluid Time Seen by Provider: 02/03/24 19:54 History of Present Illness HPI narrative: Patient complains of 1 week of worsening productive cough accompanied by frequent wheezing typical of her asthma, she says she has a mild sore throat body aches may have had a fever but not sure She used her albuterol inhaler just prior to arrival and said it has been helpful but it wears off and right now she is not short of breath and does not feel like she is wheezing Denies nausea vomiting or diarrhea denies any rash no chest pain Related Data Previous Rx's ?Medication ?Instructions ?Recorded albuterol sulfate 90 mcg/actuation 2 puff inhalation Q6H PRN 12/31/23 aerosol inhaler shortness of breath or wheezing #8.5 grams prednisone 20 mg tablet 40 mg (2 x 20 mg) PO DAILY #10 tabs 12/31/23 albuterol sulfate 90 mcg/actuation 2 puff inhalation Q4-6H PRN 01/08/24 aerosol inhaler shortness of breath or wheezing #6.7 grams hydrocortisone 0.5 % topical cream 1 appl topical BID PRN itching 01/08/24 #28.4 grams prednisone 20 mg tablet 40 mg (2 x 20 mg) PO DAILY 5 days 01/08/24 #10 tabs benzonatate 100 mg capsule 100 mg PO TID PRN cough #30 caps 01/22/24 cephalexin 500 mg capsule 500 mg PO Q6H 7 days #28 caps 01/22/24 doxycycline monohydrate 100 mg 100 mg PO BID #14 caps 01/22/24 capsule albuterol sulfate 90 mcg/actuation 2 puff inhalation Q4-6H PRN 02/03/24 aerosol inhaler shortness of breath or wheezing #8.5 grams azithromycin 250 mg tablet 250 mg PO DAILY 4 days #4 tabs 02/03/24 benzonatate 200 mg capsule 200 mg PO BID PRN cough #14 caps 02/03/24 prednisone 20 mg tablet 60 mg (3 x 20 mg) PO DAILY 5 days 02/03/24 #15 tabs Allergies Allergy/AdvReac Type Severity Reaction Status Date / Time No Known Allergies Allergy Verified 02/03/24 16:10 [No Known Allergies*] [facility] Past Medical History Source: nursing notes reviewed Social History Social History Advance Directives: No Advance Directives Information Provided: No Physical Exam ED Vital Signs: Vital Signs - 24 hr 02/03/24 16:09 Temperature 98.3 F Pulse Rate 99 Respiratory Rate 18 Blood Pressure 111/68 Pulse Oximetry 98 Oxygen Delivery Method Room Air BMI result Body Mass Index 35.3 General appearance comfortable cooperative no acute distress speaking full sentences The eyes no redness or discharge The pharynx is clear without redness swelling or exudate membranes moist The neck is supple The chest is clear to auscultation with symmetrical equal breath sounds no wheezing or adventitious sounds heard Heart no murmur Abdomen soft nontender Extremities full range of motion x4 No calf tenderness no calf swelling no leg swelling Course Course Course Narrative: This is an RME: Additional HPI, ROS, PE not included below will be deferred to primary provider. RME assessment and note performed by: Ramila Manley PA-C This is a 38 year old female, with a hx of asthma, who presents to the ER with complaints of congestion, productive cough with green colored sputum, and chest pain. Vital signs stable. She is nontoxic appearing, speaking in full sentences under no distress. Plan: Labs, EKG, chest x-ray, further ER evaluation needed. Patient with productive cough and upper respiratory symptoms for a week and feels like it is worsening with frequent MDI use for her wheezing from her asthma CBC and chemistry were nondiagnostic including a troponin of 2.7 normal, EKG was a normal sinus rhythm with out any acute ST changes no acute ischemic changes normal QT Patient is treated for bronchitis with Zithromax, her asthma is treated with prednisone and she is discharged breathing easily ambulating easily Medical Decision Making Lab Data [facility] Lab Attestation statement: I reviewed the patient's lab results. 02/03/24 19:59 02/03/24 19:59 Labs: Lab Results 02/03/24 02/03/24 Range/Units 16:33 19:59 WBC 10.7 (4.8-10.8) X10*3/uL RBC 4.48 (4.20-5.50) X10*6/uL Hgb 14.0 (12.0-16.0) g/dl Hct 43.1 (37.0-47.0) % MCV 96.2 (80.0-98.0) fL MCH 31.3 (27.0-33.0) pg MCHC 32.5 (31.0-35.0) g/dl RDW 13.2 (11.0-16.0) % Plt Count 267 (160-400) X10*3/uL MPV 9.8 (9.4-12.3) fL Immature Gran % (Auto) 0.2 (0.0-0.4) % Neut % (Auto) 58.6 (45-73) % Lymph % (Auto) 34.5 (20-40) % [place] % (Auto) 5.6 (2-11) % Eos % (Auto) 0.8 (0-4) % Baso % (Auto) 0.3 (0-2) % Lymph # (Auto) 3.7 (1.2-4.9) X10*3/uL [place] # (Auto) 0.6 (0.1-1.2) X10*3/uL Eos # (Auto) 0.1 (0.0-0.4) X10*3/uL Baso # (Auto) 0.0 (0.0-0.2) X10*3/uL Abs Immat Gran (auto) 0.02 (0.00-0.03) X10*3/uL Absolute Neuts (auto) 6.2 (2.0-8.3) x10*3/uL Absolute Nucleated RBC 0.000 (0.0-0.012) X10*3/uL Nucleated RBC % (auto) 0.0 (0.0-0.2) /100WBC Sodium 143 (135-145) mmol/L Potassium 4.4 (3.3-5.1) mmol/L Chloride 108 (96-108) mmol/L Carbon Dioxide 25 (22-29) mmol/L Anion Gap 14 (12-20) BUN 12 (9-16) mg/dL Creatinine 0.89 (0.5-1.4) mg/dL Estim Creat Clear Calc 95.9 Estimated GFR > 60 Random Glucose 125 H (60-115) mg/dL Calcium 9.9 (8.4-10.2) mg/dL Total Bilirubin 1.3 H (0.0-1.0) mg/dL Direct Bilirubin 0.5 (0.0-0.5) mg/dL AST 16 (5-31) U/L ALT 16 (0-31) U/L Alkaline Phosphatase 64 (39-117) U/L Troponin I High Sens < 2.7 (<3.5-17.0) ng/L Total Protein 7.5 (6.5-8.0) g/dL Albumin 4.4 (3.5-5.0) g/dL Beta HCG, Quant < 2 mIU/mL Influenza Type A (PCR) NEGATIVE (Negative) Influenza Type B (PCR) NEGATIVE (Negative) RSV RNA Qual (PCR) NEGATIVE (Negative) SARS-CoV-2 RNA (RT-PCR) NEGATIVE (Negative) Discharge Plan Discharge Clinical Impression: Bronchitis Patient Disposition: Home, Self-Care Additional Instructions: Chest x-ray and labs were okay, COVID test was negative We are treating bronchitis with Zithromax antibiotic We are treating asthma with prednisone and albuterol Return any time for difficulty breathing any worse condition or any concerns Prescriptions: New azithromycin 250 mg tablet 250 mg PO DAILY 4 Days Qty: 4 0RF Rx Instructions: start on day 2 of therapy prednisone 20 mg tablet 60 mg PO DAILY 5 Days Qty: 15 0RF albuterol sulfate 90 mcg/actuation HFA aerosol inhaler 2 puff inhalation Q4-6H PRN (Reason: shortness of breath or wheezing) Qty: 8.5 0RF benzonatate 200 mg capsule 200 mg PO BID PRN (Reason: cough) Qty: 14 0RF No Action prednisone 20 mg tablet 40 mg PO DAILY Qty: 10 0RF albuterol sulfate 90 mcg/actuation HFA aerosol inhaler 2 puff inhalation Q6H PRN (Reason: shortness of breath or wheezing) Qty: 8.5 0RF hydrocortisone 0.5 % cream 1 appl topical BID PRN (Reason: itching) Qty: 28.4 0RF prednisone 20 mg tablet 40 mg PO DAILY 5 Days Qty: 10 0RF albuterol sulfate 90 mcg/actuation HFA aerosol inhaler 2 puff inhalation Q4-6H PRN (Reason: shortness of breath or wheezing) Qty: 6.7 0RF cephalexin 500 mg capsule 500 mg PO Q6H 7 Days Qty: 28 0RF doxycycline monohydrate 100 mg capsule 100 mg PO BID Qty: 14 0RF benzonatate 100 mg capsule 100 mg PO TID PRN (Reason: cough) Qty: 30 0RF Print Language: Malagasy
[2024-02-03 16:09] VITALS: BP 111/68; PULSE 99; RESP 18; TEMP 36.8; O2SAT 98; BMI 35.3
--- NOTE | 2024-02-03 16:11 | ECG_ITS ---
Test Reason : chest pain Blood Pressure : / mmHG Vent. Rate : 088 BPM Atrial Rate : 088 BPM P-R Int : 120 ms QRS Dur : 078 ms QT Int : 374 ms P-R-T Axes : 078 078 043 degrees QTc Int : 452 ms Normal sinus rhythm Right atrial enlargement Borderline ECG When compared with ECG of 08-JAN-2024 08:27, Nonspecific T wave abnormality no longer evident in Lateral leads Referred By: Ramila Manley Electronically Signed By:MICHELLE POLK
[2024-02-03 17:42] LABS: Influenza A PCR NEGATIVE (Negative); Influenza B PCR NEGATIVE (Negative); Resp Syncy Virus RNA Qual PCR NEGATIVE (Negative); SARS COV2 PCR INHOUSE NEGATIVE (Negative)
[2024-02-03 20:03] LABS: MANUAL DIFF FLAG NO
[2024-02-03 20:07] LABS: Basophils Percent Auto 0.3 % (0-2); Eosinophils Absolute Auto 0.1 X10*3/uL (0.0-0.4); Eosinophils Percent Auto 0.8 % (0-4); Hematocrit 43.1 % (37.0-47.0); Imm Gran Abs Auto 0.02 X10*3/uL (0.00-0.03); Imm Gran Pct Auto 0.2 % (0.0-0.4); Lymphocytes Absolute Auto 3.7 X10*3/uL (1.2-4.9); Lymphocytes Percent Auto 34.5 % (20-40); Mean Corpuscular HGB Conc 32.5 g/dl (31.0-35.0); Mean Corpuscular Hemoglobin 31.3 pg (27.0-33.0); Mean Corpuscular Volume 96.2 fL (80.0-98.0); Mean Platelet Volume 9.8 fL (9.4-12.3); Monocytes Absolute Auto 0.6 X10*3/uL (0.1-1.2); Monocytes Percent Auto 5.6 % (2-11); Neutrophils Absolute Auto 6.2 x10*3/uL (2.0-8.3); Neutrophils Percent Auto 58.6 % (45-73); Platelet Count 267 X10*3/uL (160-400); Red Blood Count 4.48 X10*6/uL (4.20-5.50); Red Cell Distribution Width 13.2 % (11.0-16.0); White Blood Count 10.7 X10*3/uL (4.8-10.8)
[2024-02-03 20:26] LABS: Alanine Aminotransferase 16 U/L (0-31); Albumin Level 4.4 g/dL (3.5-5.0); Alkaline Phosphatase 64 U/L (39-117); Anion Gap 14 (12-20); Aspartate Amino Transferase 16 U/L (5-31); Bilirubin Direct 0.5 mg/dL (0.0-0.5); Bilirubin Total 1.3 mg/dL (0.0-1.0); Blood Urea Nitrogen 12 mg/dL (9-16); Calcium 9.9 mg/dL (8.4-10.2); Carbon Dioxide 25 mmol/L (22-29); Chloride 108 mmol/L (96-108); Creatinine Clr Calc Pharmacy 95.9; Estimated Glomerular Filt Rate > 60; Glucose Random 125 mg/dL (60-115); Potassium 4.4 mmol/L (3.3-5.1); Sodium 143 mmol/L (135-145); Total Protein 7.5 g/dL (6.5-8.0)
[2024-02-03 20:28] LABS: HCG Quantitative < 2 mIU/mL
[2024-02-03 20:32] LABS: Troponin-I High Sensitivity < 2.7 ng/L (<3.5-17.0)
[2024-02-03 21:23] VITALS: BP 107/55; PULSE 89; RESP 18; TEMP 36.3; O2SAT 98
[2024-02-03] MEDS: Azithromycin 500 MG TABLET PO (21:28)
[2024-02-03] MEDS: predniSONE 20 MG TABLET 60 MG PO (21:28)
[2024-02-03 21:29] VITALS: BP 107/55; PULSE 89; RESP 18; TEMP 36.3; O2SAT 98
== END 2024-02-03 21:37 | disposition home or self-care (01) ==
PROVIDERS: Physician Assistant Medical; Emergency Provider Emergency Medicine
DX: J40 Bronchitis, not specified as acute or chronic (principal); R07.89 Other chest pain; Z03.818 Encounter for observation for suspected exposure to other biological agents ruled out; Z79.899 Other long term (current) drug therapy
CPT/HCPCS: 0241U; 36415; 71046; 80048; 80076; 84484; 84702; 85025; 93005; 99283; 99284

== ENCOUNTER → 2024-02-03 16:11 | Outpatient (BNV) | payer MEDICAID, SELFPAY | PROVIDERS: Emergency Provider Emergency Medicine; Visit Provider Internal Medicine | DX: R07.9 Chest pain, unspecified (principal); R94.31 Abnormal electrocardiogram [ECG] [EKG] | CPT/HCPCS: 93010 ==

== ENCOUNTER 2024-02-10 22:38 | Inpatient (IN) | payer MEDICAID, OTHER, SELFPAY ==
[2024-02-10 22:57] VITALS: BP 118/75; PULSE 76; RESP 14; TEMP 36.5; O2SAT 98; BMI 36.1
--- NOTE | 2024-02-10 23:12 | PC.NURSE ---
client changed over by this lyric writer and no evidence of contraband or injury to person
--- NOTE | 2024-02-11 00:13 | ED_ITS ---
HPI - Psych General Chief Complaint: Psychiatric Symptoms Stated Complaint: Crisis Time Seen by Provider: 02/10/24 23:41 Source: patient Mode of arrival: ambulatory Limitations: no limitations History of Present Illness HPI Narrative: Patient is a 38-year-old female who presents emergency department for evaluation. She is endorsing suicidal ideations with a plan to cut herself. She reports increasing depression, not showering or taking care of herself as she knows she should over the past 2 weeks. States about 2 months ago she moved into a friend's house was previously residing with her aunt and uncle, reports that her children are not currently in her care but feels they are in a safe place, does not disclose with whom they are staying with. She is not taking any medications and does not have any community resources such as a therapist or psychiatrist. She reports that [birth year] is the birthday of her children's father, states that he tried typically 4 years ago due to COVID-19, and she was actively at that time. Soon after that time she reports that she did attempt to overdose herself on heroin as a suicide attempt, resulting in an inpatient admission to [facility] for some time. She reports no further psychiatric admissions since then. She denies any current recreational drug or alcohol usage, she is not on any Suboxone or methadone. She offers no physical complaints at this time. Related Data Previous Rx's ?Medication ?Instructions ?Recorded albuterol sulfate 90 mcg/actuation 2 puff inhalation Q6H PRN 12/31/23 aerosol inhaler shortness of breath or wheezing #8.5 grams prednisone 20 mg tablet 40 mg (2 x 20 mg) PO DAILY #10 tabs 12/31/23 albuterol sulfate 90 mcg/actuation 2 puff inhalation Q4-6H PRN 01/08/24 aerosol inhaler shortness of breath or wheezing #6.7 grams hydrocortisone 0.5 % topical cream 1 appl topical BID PRN itching 01/08/24 #28.4 grams prednisone 20 mg tablet 40 mg (2 x 20 mg) PO DAILY 5 days 01/08/24 #10 tabs benzonatate 100 mg capsule 100 mg PO TID PRN cough #30 caps 01/22/24 cephalexin 500 mg capsule 500 mg PO Q6H 7 days #28 caps 01/22/24 doxycycline monohydrate 100 mg 100 mg PO BID #14 caps 01/22/24 capsule albuterol sulfate 90 mcg/actuation 2 puff inhalation Q4-6H PRN 02/03/24 aerosol inhaler shortness of breath or wheezing #8.5 grams azithromycin 250 mg tablet 250 mg PO DAILY 4 days #4 tabs 02/03/24 benzonatate 200 mg capsule 200 mg PO BID PRN cough #14 caps 02/03/24 prednisone 20 mg tablet 60 mg (3 x 20 mg) PO DAILY 5 days 02/03/24 #15 tabs Allergies Allergy/AdvReac Type Severity Reaction Status Date / Time No Known Allergies Allergy Verified 02/10/24 22:58 [No Known Allergies*] Review of Systems 2 Review of Systems: Yes all other systems are reviewed and are negative PMFSH Past Medical History Attestation statement: The following information was validated with the patient. Source: old records reviewed Social History Social History Advance Directives: No Advance Directives Information Provided: Yes Do you have a plan to hurt others: No Plan Physical Exam 2 Vital Signs: Vital Signs: Last Vital Signs Temp 97.7 F 02/10/24 22:57 Pulse 76 02/10/24 22:57 Resp 14 02/10/24 22:57 BP 118/75 02/10/24 22:57 Pulse Ox 98 02/10/24 22:57 O2 Del Method Room Air 02/10/24 22:57 BMI result Body Mass Index 36.1 Appearance: Alert.?Oriented to person, place and time. No acute distress.?Normal affect. Eyes: Pupils equal, round and reactive to light.? ENT: Pharynx normal.?? Neck: Normal inspection.? Neck supple.?? CVS: Heart sounds normal. Normal heart rate and rhythm.? Pulses normal.?? Respiratory: No respiratory distress.? Lung sounds clear to auscultation bilaterally?? Abdomen: Soft and non-tender. Normoactive bowel sounds. Skin: Skin warm and dry.? Normal skin color.? Extremities: No lower extremity edema.? Neuro: Moves all extremities spontaneously. Sensation intact bilaterally. CN II- XII intact. No focal neuro deficits. Ambulates with normal steady gait. Medical Decision Making Medical Decision Making MDM Narrative: Patient is a 38-year-old female who presents emergency department for evaluation of SI with a plan as per HPI. Her enema physical exam benign, calm and cooperative at the time of my evaluation. She offers no physical complaints at this time. She overall appears well, nontoxic, afebrile. Will obtain basic labs for medical clearance and refer to care team Differential Diagnosis Differential Diagnoses: The differential diagnosis associated with the presentation includes (See narrative above and below) Admission/Observation Consideration of admission/observation: Escalation of care including admission/observation considered Patient is being observed in the Emergency Department for depression and anxiety. Observation time was started at 00:26 on 02/11/2024?The patient is currently stable and non-toxic appearing. Observation is being initiated in the Emergency Department to allow time to help differentiate if the patient's depression and anxiety is due to Substance Induced Mood Disorder and Anxiety versus Major Depressive Disorder, Bipolar Shanel, Bipolar Depression, and Schizophrenia. The patient will receive frequent psychiatric assessments from the provider as well as from nursing staff. The patient will also be monitored for the need of PRN agitation medications such as Haldol, Ativan, and Benadryl. Consult Healthcare Provider Management of the patient was discussed with: Behavioral Health Provider Lab Data [facility] Lab Attestation statement: I reviewed the patient's lab results. CBC is without leukocytosis anemia or thrombocytopenia. No electrolyte derangement. No MICHI. Urinalysis with 1+ leukocyte esterase 1+ urine bacteria, denies urinary symptoms, squamous epithelial cells are present likely urogenital contamination. Toxicology positive for buprenorphine and cocaine, as per HPI patient denies any recreational drug usage or MAT. Alcohol level nondetectable 02/11/24 00:35 02/11/24 00:35 Labs: Lab Results 02/11/24 02/11/24 Range/Units 00:34 00:35 WBC 9.1 (4.8-10.8) X10*3/uL RBC 4.23 (4.20-5.50) X10*6/uL Hgb 13.3 (12.0-16.0) g/dl Hct 40.5 (37.0-47.0) % MCV 95.7 (80.0-98.0) fL MCH 31.4 (27.0-33.0) pg MCHC 32.8 (31.0-35.0) g/dl RDW 13.5 (11.0-16.0) % Plt Count 253 (160-400) X10*3/uL MPV 9.7 (9.4-12.3) fL Immature Gran % (Auto) 0.2 (0.0-0.4) % Neut % (Auto) 41.0 L (45-73) % Lymph % (Auto) 50.8 H (20-40) % [place] % (Auto) 6.4 (2-11) % Eos % (Auto) 1.3 (0-4) % Baso % (Auto) 0.3 (0-2) % Lymph # (Auto) 4.6 (1.2-4.9) X10*3/uL [place] # (Auto) 0.6 (0.1-1.2) X10*3/uL Eos # (Auto) 0.1 (0.0-0.4) X10*3/uL Baso # (Auto) 0.0 (0.0-0.2) X10*3/uL Abs Immat Gran (auto) 0.02 (0.00-0.03) X10*3/uL Absolute Neuts (auto) 3.7 (2.0-8.3) x10*3/uL Absolute Nucleated RBC 0.000 (0.0-0.012) X10*3/uL Nucleated RBC % (auto) 0.0 (0.0-0.2) /100WBC Sodium 145 (135-145) mmol/L Potassium 4.7 (3.3-5.1) mmol/L Chloride 111 H (96-108) mmol/L Carbon Dioxide 28 (22-29) mmol/L Anion Gap 11 L (12-20) BUN 9 (9-16) mg/dL Creatinine 0.84 (0.5-1.4) mg/dL Estim Creat Clear Calc 102.7 Estimated GFR > 60 Random Glucose 68 (60-115) mg/dL Calcium 9.4 (8.4-10.2) mg/dL Total Bilirubin 0.3 (0.0-1.0) mg/dL AST 24 (5-31) U/L ALT 17 (0-31) U/L Alkaline Phosphatase 72 (39-117) U/L Total Protein 6.9 (6.5-8.0) g/dL Albumin 4.1 (3.5-5.0) g/dL Beta HCG, Quant < 2 mIU/mL Urine Color Yellow Urine Appearance Clear Urine pH 6.5 (5.0-9.0) Ur Specific [place] 1.025 (1.005-1.025) Urine Protein Negative (Neg-Trace) mg/dL Urine Glucose (UA) Negative (Negative) mg/dL Urine Ketones Negative (Negative) mg/dL Urine Blood Negative (Negative) Urine Nitrite Negative (Negative) Ur Leukocyte Esterase Small (1+) H (Negative) Urine RBC 0-2 (0-2) /HPF Urine WBC 0-5 (0-5) /HPF Ur Squamous Epith Cells 6-10 (0-2) /HPF Urine Bacteria 1+ (None Seen) Hyaline Casts 0-2 (0-2) /LPF Urine Opiates Screen Not Detected (Not Detect) Ur Buprenorphine Scrn Positive H (Not Detect) ng/mL Ur Oxycodone Screen Not Detected (Not Detect) ng/mL Urine Methadone Screen Not Detected (Not Detect) ng/mL Urine Fentanyl Screen Not Detected (Not Detect) Ur Barbiturates Screen Not Detected (Not Detect) Ur Phencyclidine Scrn Not Detected (Not Detect) Ur Amphetamines Screen Not Detected (Not Detect) U Benzodiazepines Scrn Not Detected (Not Detect) Urine Cocaine Screen POSITIVE H (Not Detect) U Marijuana (THC) Screen Not Detected (Not Detect) Ethyl Alcohol < 10 mg/dL External Record Review External record reviewed: Outpatient record Discharge Plan Discharge Clinical Impression: Suicidal ideation Patient Disposition: Still a Patient Prescriptions: No Action prednisone 20 mg tablet 40 mg PO DAILY Qty: 10 0RF albuterol sulfate 90 mcg/actuation HFA aerosol inhaler 2 puff inhalation Q6H PRN (Reason: shortness of breath or wheezing) Qty: 8.5 0RF hydrocortisone 0.5 % cream 1 appl topical BID PRN (Reason: itching) Qty: 28.4 0RF prednisone 20 mg tablet 40 mg PO DAILY 5 Days Qty: 10 0RF albuterol sulfate 90 mcg/actuation HFA aerosol inhaler 2 puff inhalation Q4-6H PRN (Reason: shortness of breath or wheezing) Qty: 6.7 0RF cephalexin 500 mg capsule 500 mg PO Q6H 7 Days Qty: 28 0RF doxycycline monohydrate 100 mg capsule 100 mg PO BID Qty: 14 0RF benzonatate 100 mg capsule 100 mg PO TID PRN (Reason: cough) Qty: 30 0RF azithromycin 250 mg tablet 250 mg PO DAILY 4 Days Qty: 4 0RF Rx Instructions: start on day 2 of therapy prednisone 20 mg tablet 60 mg PO DAILY 5 Days Qty: 15 0RF albuterol sulfate 90 mcg/actuation HFA aerosol inhaler 2 puff inhalation Q4-6H PRN (Reason: shortness of breath or wheezing) Qty: 8.5 0RF benzonatate 200 mg capsule 200 mg PO BID PRN (Reason: cough) Qty: 14 0RF Print Language: Maltese
[2024-02-11 00:44] LABS: Appearance Urine Clear; Color Urine Yellow; Glucose Urine UA Negative (Negative); Leukocyte Esterase Urine Small (1+) (Negative); Nitrite Urine Negative (Negative); PH 6.5 (5.0-9.0); Specific Gravity - Urine 1.025 (1.005-1.025); UMIC TRIGGER UACC YES; Urine Blood Negative (Negative); Urine Ketones Negative (Negative); Urine Protein Negative (Neg-Trace)
[2024-02-11 00:56] LABS: MANUAL DIFF FLAG NO
[2024-02-11 00:57] LABS: Bacteria Urine 1+ (None Seen); Hyaline Casts Urine 0-2 /LPF (0-2); RBC Urine 0-2 /HPF (0-2); UACC Culture Trigger YES; WBC Urine 0-5 /HPF (0-5)
[2024-02-11 00:58] LABS: Basophils Percent Auto 0.3 % (0-2); Eosinophils Absolute Auto 0.1 X10*3/uL (0.0-0.4); Eosinophils Percent Auto 1.3 % (0-4); Hematocrit 40.5 % (37.0-47.0); Hemoglobin 13.3 g/dl (12.0-16.0); Imm Gran Abs Auto 0.02 X10*3/uL (0.00-0.03); Imm Gran Pct Auto 0.2 % (0.0-0.4); Lymphocytes Absolute Auto 4.6 X10*3/uL (1.2-4.9); Lymphocytes Percent Auto 50.8 % (20-40); Mean Corpuscular HGB Conc 32.8 g/dl (31.0-35.0); Mean Corpuscular Hemoglobin 31.4 pg (27.0-33.0); Mean Corpuscular Volume 95.7 fL (80.0-98.0); Mean Platelet Volume 9.7 fL (9.4-12.3); Monocytes Absolute Auto 0.6 X10*3/uL (0.1-1.2); Monocytes Percent Auto 6.4 % (2-11); Neutrophils Absolute Auto 3.7 x10*3/uL (2.0-8.3); Platelet Count 253 X10*3/uL (160-400); Red Blood Count 4.23 X10*6/uL (4.20-5.50); Red Cell Distribution Width 13.5 % (11.0-16.0); White Blood Count 9.1 X10*3/uL (4.8-10.8)
[2024-02-11 01:16] LABS: Amphetamine Screen Urine Not Detected (Not Detect); Barbiturates, Urine Not Detected (Not Detect); Benzodiazepines Screen Urine Not Detected (Not Detect); Buprenorphine Scr Positive (Not Detect); Cannabinoid Screen Urine Not Detected (Not Detect); Cocaine Screen Urine POSITIVE (Not Detect); Fentanyl, urine Not Detected (Not Detect); Methadone Screen, Urine Not Detected (Not Detect); Opiate Screen Urine Not Detected (Not Detect); Oxycodone Screen Urine Not Detected (Not Detect); Phencyclidine Screen Urine Not Detected (Not Detect)
[2024-02-11 01:26] LABS: Alanine Aminotransferase 17 U/L (0-31); Albumin Level 4.1 g/dL (3.5-5.0); Alkaline Phosphatase 72 U/L (39-117); Anion Gap 11 (12-20); Aspartate Amino Transferase 24 U/L (5-31); Bilirubin Total 0.3 mg/dL (0.0-1.0); Blood Urea Nitrogen 9 mg/dL (9-16); Calcium 9.4 mg/dL (8.4-10.2); Carbon Dioxide 28 mmol/L (22-29); Chloride 111 mmol/L (96-108); Creatinine Clr Calc Pharmacy 102.7; Estimated Glomerular Filt Rate > 60; Ethanol < 10 mg/dL; Glucose Random 68 mg/dL (60-115); HCG Quantitative < 2 mIU/mL; Potassium 4.7 mmol/L (3.3-5.1); Sodium 145 mmol/L (135-145); Total Protein 6.9 g/dL (6.5-8.0)
--- NOTE | 2024-02-11 13:50 | ECG_ITS ---
Test Reason : MED CLEARANCE Blood Pressure : / mmHG Vent. Rate : 071 BPM Atrial Rate : 071 BPM P-R Int : 112 ms QRS Dur : 082 ms QT Int : 378 ms P-R-T Axes : 017 078 043 degrees QTc Int : 410 ms Normal sinus rhythm Normal ECG When compared with ECG of 03-FEB-2024 16:21, No significant change was found Referred By: Genaro Velasco Electronically Signed By:Joni Ruggiero
--- NOTE | 2024-02-11 15:26 | PHA.MEDREC ---
Addendum entered by Karishma Mendez [facility] 02/11/24 15:40: Reviewed by [facility]. Addendum entered by Ammon Jain 02/11/24 15:36: looking at day supply Azithromycin 250mg tabs and Prednisone 20mg tabs would be done by 02/09/24. Original Note: Pharmacy Consult ? Medication Reconciliation Pharmacy reviewed Med Rec done by nursing. Nurse put No Known Home Meds , looking in claims even after updating nothing showed up. I called [place] pharmacy and they state she got an Azithromycin 250mg once a day tablet for 4 days, an Albuterol inhaler doing 2 puffs every 4-6 hours as needed for SOB/Wheezing and Prednizone 20mg tabs taking 3 tabs daily for 5 days. All 3 were picked up on 02/04/24 and before that they state she has not filled at their location since August of this year. Added those to Med Rec.
[2024-02-11 15:48] VITALS: BP 102/55; PULSE 72; RESP 14; TEMP 37.2; O2SAT 98
--- NOTE | 2024-02-11 16:08 | PC.NURSE ---
Patient slept most the day woke up to eat her meals and ask for something to drink and eat. Patient took a shower today and washed her hair. report given to [facility].
[2024-02-11 16:38] VITALS: BP 130/81; PULSE 78; RESP 18; TEMP 36.9; O2SAT 98; BMI 35.5
--- NOTE | 2024-02-11 19:56 | PC.ADMIT ---
Kayla was admitted to [facility] at 1620 from [facility] on CV for treatment of suicidal ideation. Pt is homeless and has been off her medications for unspecified amount of time. She currently has no outside providers.Her Tox screen positive for cocaine and buprenorphine. She reports a history of Bipolar Disorder, PTSD, and Anxiety Disorder. Pt is A&O x4, Mood is depressed and affect in congruent with stated mood. Kayla reports worsening depression and difficulty attending to her ADL's due to anniversary of the of her childrens father. Pt reports previous SI attempt in 2019 via overdose and was hospitalized at [facility]. Pt denies auditory and visual hallucinations at this time but reports that she has heard voices in the past.. Eye contact is intermittent, speech is soft. Pt denies ideation, plan or intent to harm self or others while on the unit. Appetite is good . Sleep has been disrupted due to nightmares.Pts goal for this admission is to be re-started on medications and receive assistance acquiring outside providers. Pt was cooperative for admission process was oriented to to the unit and is monitored q 15 min for safety.
[2024-02-11 20:00] VITALS: BP 102/57; PULSE 67; RESP 16; TEMP 37; O2SAT 98
--- NOTE | 2024-02-11 21:37 | PC.NURSE ---
per patient verbal request, her uncle katerina was notified of her admission to the hospital. [phone]
[2024-02-12] MEDS: traZODone HCL 50 MG TABLET PO (00:39)
[2024-02-12] MEDS: hydrOXYzine HCL 25 MG TABLET PO (00:39)
[2024-02-12 07:43] VITALS: BP 106/65; PULSE 84; RESP 18; TEMP 36; O2SAT 97
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
[2024-02-12 14:12] VITALS: BP 105/51
[2024-02-12] MEDS: cloNIDine HCL 0.1 MG TABLET PO (14:12)
[2024-02-12] MEDS: FLUoxetine HCl 20 MG CAPSULE PO (14:12)
[2024-02-12 20:00] VITALS: BP 111/57; PULSE 68; RESP 16; TEMP 36.8; O2SAT 97
[2024-02-12] MEDS: cloNIDine HCL 0.2 MG TABLET PO (20:12)
[2024-02-13 07:46] VITALS: BP 74/38; PULSE 58; RESP 14; TEMP 36.8; O2SAT 98
[2024-02-13 08:06] VITALS: BP 84/49; PULSE 56
[2024-02-13] MEDS: FLUoxetine HCl 20 MG CAPSULE PO (08:38)
--- NOTE | 2024-02-13 12:26 | HO.PSYCHPN ---
Subjective Subjective Date of Service: 02/13/24 Reason For Visit: SI Interim History: in bed, abrasive demeanor. reports she slept OK. denies any lightheadedness, dizziness, wooziness, etc. notes clonidine has been DCed, discusses doxazosin as an alternative. pt reports her BPs have been done with her lying down in bed; MD encouraged pt to be up and about prior to having BP checked. per staff, dep/anx 8. slept well. isolative. Mental Status Exam Mental Status Exam Narrative: disheveled, hospital attire. answering questions, yet abrasive in demeanor. no PMA/PMR. speech nml rate, amount, loudness, tone, latency. thoughts linear and logical. affect constricted, normo-intense, min-labile/irritable. mood not assessed. no SI/SIBI/HI/AVH expressed. Diagnostics Vital Signs (24Hr): Vital Signs - 24 hr 02/12/24 14:12 02/12/24 20:00 02/13/24 07:46 Temperature 98.3 F 98.3 F Pulse Rate 68 58 Respiratory Rate 16 14 Blood Pressure 105/51 L 111/57 L 74/38 L Pulse Oximetry 97 98 Oxygen Delivery Method Room Air Room Air 02/13/24 08:06 Temperature Pulse Rate 56 Respiratory Rate Blood Pressure 84/49 L Pulse Oximetry Oxygen Delivery Method BMI result Body Mass Index 35.5 Labs 02/11/24 00:35 02/11/24 00:35 Medications Medications Current Medications Acetaminophen (Acetaminophen 325 Mg Tablet) 650 mg PO Q6H PRN PRN Reason: Headache/Pain Mild Scale (1-3) Al Hydroxide/Mg Hydroxide (Magnesium Hydrox/Alum Hydrox 30 Ml Oral.Susp) 30 ml PO Q6H PRN PRN Reason: Heartburn/Nausea Fluoxetine HCl (Fluoxetine Hcl 20 Mg Capsule) 20 mg PO DAILY LION Last Admin: 02/13/24 08:38 Dose: 20 mg Hydroxyzine HCl (Hydroxyzine Hcl 25 Mg Tablet) 25 mg PO Q6H PRN PRN Reason: Anxiety Last Admin: 02/12/24 00:39 Dose: 25 mg Magnesium Hydroxide (Milk Of Magnesia 30 Ml Oral.Susp) 30 ml PO DAILY PRN PRN Reason: Constipation Nicotine Polacrilex (Nicotine Polacrilex 2 Mg Gum) 4 mg BUCCAL Q2H PRN PRN Reason: Nicotine Cravings Trazodone HCl (Trazodone Hcl 50 Mg Tablet) 50 mg PO BEDTIME MRX1 PRN PRN Reason: Insomnia Last Admin: 02/12/24 00:39 Dose: 50 mg Allergies Allergies Allergy/AdvReac Type Severity Reaction Status Date / Time No Known Allergies Allergy Verified 02/10/24 22:58 [No Known Allergies*] Assessment & Plan Assessment & Plan (1) Cocaine use disorder: Status: Acute Code(s): F14.10 - Cocaine abuse, uncomplicated (2) Unspecified mood [affective] disorder: Status: Acute Code(s): F39 - Unspecified mood [affective] disorder (3) Chronic post-traumatic stress disorder (PTSD): Status: Acute Code(s): F43.12 - Post-traumatic stress disorder, chronic Plan 02/11: start prozac 20 and clonidine 0.1/0.1/0.2 for PTSD/anxiety/depression. supportive care for cocaine withdrawal. refer for providers in the community. 02/12: continue prozac. clonidine DCed due to hypotension. pt advised to be up and about prior to having BP read. if BP improves, T/C starting doxazosin at low dose at HS for sleep/nightmares/anxiety. Reason for continued inpatient stay Substantial Risk for: harm to self, inability to function and rapid decompensation Time Spent With Patient Time: Total time managing care of this patient today __25__ minutes.
[2024-02-13 20:10] VITALS: BP 115/56; PULSE 60; RESP 14; TEMP 36.9; O2SAT 99
[2024-02-13] MEDS: Acetaminophen 325 MG TABLET 650 MG PO (20:31)
[2024-02-13] MEDS: hydrOXYzine HCL 25 MG TABLET PO (20:32)
[2024-02-14 07:41] VITALS: BP 97/53; PULSE 69; RESP 16; TEMP 36.9; O2SAT 98
[2024-02-14] MEDS: FLUoxetine HCl 20 MG CAPSULE PO (11:12)
--- NOTE | 2024-02-14 16:22 | HO.PSYCHPN ---
Subjective Subjective Date of Service: 02/14/24 Reason For Visit: SI Subjective Notes: Conditional Voluntary Interim History: Pt slept most of the night. She reports clonidine really helping and wondering if it can be restarted. we discussd having fluids or taking it after breakfast and maybe trying lower dose, which she agreed with understanding that is consistently low bp, may have to dc. we discussed increasing prozac. mostly in bed. not attending groups. not interacting with peers. Review of Systems Review of Systems Yes all other systems are reviewed and are negative Mental Status Exam Mental Status Exam Narrative: disheveled, hospital attire. answering questions, yet abrasive in demeanor. no PMA/PMR. speech nml rate, amount, loudness, tone, latency. thoughts linear and logical. affect constricted, normo-intense, min-labile/irritable. mood not assessed. no SI/SIBI/HI/AVH expressed. Diagnostics Vital Signs (24Hr): Vital Signs - 24 hr 02/13/24 20:10 02/14/24 07:41 Temperature 98.5 F 98.5 F Pulse Rate 60 69 Respiratory Rate 14 16 Blood Pressure 115/56 L 97/53 L Pulse Oximetry 99 98 Oxygen Delivery Method Room Air Room Air BMI result Body Mass Index 35.5 Labs 02/11/24 00:35 02/11/24 00:35 Medications Medications Current Medications Acetaminophen (Acetaminophen 325 Mg Tablet) 650 mg PO Q6H PRN PRN Reason: Headache/Pain Mild Scale (1-3) Last Admin: 02/13/24 20:31 Dose: 650 mg Al Hydroxide/Mg Hydroxide (Magnesium Hydrox/Alum Hydrox 30 Ml Oral.Susp) 30 ml PO Q6H PRN PRN Reason: Heartburn/Nausea Fluoxetine HCl (Fluoxetine Hcl 20 Mg Capsule) 20 mg PO DAILY [facility] Last Admin: 02/14/24 11:12 Dose: 20 mg Hydroxyzine HCl (Hydroxyzine Hcl 25 Mg Tablet) 25 mg PO Q6H PRN PRN Reason: Anxiety Last Admin: 02/13/24 20:32 Dose: 25 mg Magnesium Hydroxide (Milk Of Magnesia 30 Ml Oral.Susp) 30 ml PO DAILY PRN PRN Reason: Constipation Nicotine Polacrilex (Nicotine Polacrilex 2 Mg Gum) 4 mg BUCCAL Q2H PRN PRN Reason: Nicotine Cravings Trazodone HCl (Trazodone Hcl 50 Mg Tablet) 50 mg PO BEDTIME MRX1 PRN PRN Reason: Insomnia Last Admin: 02/12/24 00:39 Dose: 50 mg Allergies Allergies Allergy/AdvReac Type Severity Reaction Status Date / Time No Known Allergies Allergy Verified 02/10/24 22:58 [No Known Allergies*] Assessment & Plan Assessment & Plan (1) Cocaine use disorder: Status: Acute Code(s): F14.10 - Cocaine abuse, uncomplicated (2) Unspecified mood [affective] disorder: Status: Acute Code(s): F39 - Unspecified mood [affective] disorder (3) Chronic post-traumatic stress disorder (PTSD): Status: Acute Code(s): F43.12 - Post-traumatic stress disorder, chronic Plan 02/11: start prozac 20 and clonidine 0.1/0.1/0.2 for PTSD/anxiety/depression. supportive care for cocaine withdrawal. refer for providers in the community. 02/12: continue prozac. clonidine DCed due to hypotension. pt advised to be up and about prior to having BP read. if BP improves, T/C starting doxazosin at low dose at HS for sleep/nightmares/anxiety. 02/13- increase prozac 40mg po daily, clonidine 0.05mg po BID. may change timing of dosing after breakfast. Reason for continued inpatient stay Substantial Risk for: inability to function Time Spent With Patient Time: Total time managing care of this patient today ____ minutes.
[2024-02-14 20:00] VITALS: BP 110/64; PULSE 78; RESP 12; TEMP 36.8; O2SAT 98
[2024-02-14] MEDS: cloNIDine HCL 0.1 MG TABLET 0.05 MG PO (20:37)
[2024-02-14] MEDS: Acetaminophen 325 MG TABLET 650 MG PO (20:38)
[2024-02-14] MEDS: traZODone HCL 50 MG TABLET PO ×2 (20:38→22:01)
[2024-02-14] MEDS: hydrOXYzine HCL 25 MG TABLET PO (20:38)
[2024-02-15 07:20] VITALS: BP 104/55; PULSE 56; RESP 16; TEMP 37.2; O2SAT 96
[2024-02-15] MEDS: FLUoxetine HCl 20 MG CAPSULE 40 MG PO (08:19)
[2024-02-15] MEDS: cloNIDine HCL 0.1 MG TABLET 0.05 MG PO ×2 (08:19→20:09)
[2024-02-15 08:45] LABS: Estimated Average Glucose 88 mg/dL; Hemoglobin A1c % 4.7 % (<6.0); Total Hemoglobin (HGBA1C) 3638.0793 umol/L
[2024-02-15 08:56] LABS: Cholesterol 160 mg/dL (<200); HDL Cholesterol 49 mg/dL (>40); LDL Cholesterol Calculated 95 mg/dL (<100); Triglycerides 82 mg/dL (<150)
[2024-02-15 09:09] LABS: Free T4 (Free Thyroxine) 0.93 ng/dL (0.71-1.85); Thyroid Stimulating Hormone 3.37 uIU/mL (0.32-4.0)
[2024-02-15 09:25] LABS: Folate 8.7 ng/mL (> or = 4.0); Vitamin B12 306 pg/mL (200-900)
--- NOTE | 2024-02-15 16:05 | P.PNPSI_ITS ---
Subjective Subjective Date of Service: 02/15/24 Reason For Visit: SI Subjective Notes: Conditional Voluntary Interim History: Pt slept most of the night. She reports clonidine really helping and wondering if it can be restarted. we discussed having fluids or taking it after breakfast and maybe trying lower dose, which she agreed with understanding that is consistently low bp, may have to dc. we discussed increasing prozac. mostly in bed. not attending groups. not interacting with peers. Review of Systems Review of Systems Yes all other systems are reviewed and are negative Mental Status Exam Mental Status Exam Narrative: disheveled, hospital attire. answering questions, yet abrasive in demeanor. no PMA/PMR. speech nml rate, amount, loudness, tone, latency. thoughts linear and logical. affect constricted, normo-intense, min-labile/irritable. mood not assessed. no SI/SIBI/HI/AVH expressed. Diagnostics Vital Signs (24Hr): Vital Signs - 24 hr 02/14/24 20:00 02/15/24 07:20 Temperature 98.2 F 99.0 F Pulse Rate 78 56 Respiratory Rate 12 16 Blood Pressure 110/64 104/55 L Pulse Oximetry 98 96 Oxygen Delivery Method Room Air Room Air BMI result Body Mass Index 35.5 Labs 02/11/24 00:35 02/11/24 00:35 Labs: Laboratory Results - last 48 hr 02/15/24 08:12 Estimat Average Glucose 88 Hemoglobin A1c % 4.7 Triglycerides 82 Cholesterol 160 LDL Cholesterol, Calc 95 HDL Cholesterol 49 Vitamin B12 306 Folate 8.7 TSH 3.37 Free T4 0.93 Medications Medications Current Medications Acetaminophen (Acetaminophen 325 Mg Tablet) 650 mg PO Q6H PRN PRN Reason: Headache/Pain Mild Scale (1-3) Last Admin: 02/14/24 20:38 Dose: 650 mg Al Hydroxide/Mg Hydroxide (Magnesium Hydrox/Alum Hydrox 30 Ml Oral.Susp) 30 ml PO Q6H PRN PRN Reason: Heartburn/Nausea Clonidine HCl (Clonidine Hcl 0.1 Mg Tablet) 0.05 mg PO BID [facility]; Protocol Last Admin: 02/15/24 08:19 Dose: 0.05 mg Fluoxetine HCl (Fluoxetine Hcl 20 Mg Capsule) 40 mg PO DAILY [facility] Last Admin: 02/15/24 08:19 Dose: 40 mg Hydroxyzine HCl (Hydroxyzine Hcl 25 Mg Tablet) 25 mg PO Q6H PRN PRN Reason: Anxiety Last Admin: 02/14/24 20:38 Dose: 25 mg Magnesium Hydroxide (Milk Of Magnesia 30 Ml Oral.Susp) 30 ml PO DAILY PRN PRN Reason: Constipation Nicotine Polacrilex (Nicotine Polacrilex 2 Mg Gum) 4 mg BUCCAL Q2H PRN PRN Reason: Nicotine Cravings Trazodone HCl (Trazodone Hcl 50 Mg Tablet) 50 mg PO BEDTIME MRX1 PRN PRN Reason: Insomnia Last Admin: 02/14/24 22:01 Dose: 50 mg Allergies Allergies Allergy/AdvReac Type Severity Reaction Status Date / Time No Known Allergies Allergy Verified 02/10/24 22:58 [No Known Allergies*] Assessment & Plan Assessment & Plan (1) Unspecified mood [affective] disorder: Status: Acute Code(s): F39 - Unspecified mood [affective] disorder (2) Cocaine use disorder: Status: Acute Code(s): F14.10 - Cocaine abuse, uncomplicated (3) Chronic post-traumatic stress disorder (PTSD): Status: Acute Code(s): F43.12 - Post-traumatic stress disorder, chronic Plan 02/11: start prozac 20 and clonidine 0.1/0.1/0.2 for PTSD/anxiety/depression. supportive care for cocaine withdrawal. refer for providers in the community. 02/12: continue prozac. clonidine DCed due to hypotension. pt advised to be up and about prior to having BP read. if BP improves, T/C starting doxazosin at low dose at HS for sleep/nightmares/anxiety. 02/13 prozac 40mg po daily. clonidine 0.05mg po BID. 02/14 continue tx. Reason for continued inpatient stay Substantial Risk for: inability to function Time Spent With Patient Time: Total time managing care of this patient today ____ minutes.
[2024-02-15 20:00] VITALS: BP 100/64; PULSE 64; RESP 16; TEMP 36.6; O2SAT 98
[2024-02-15 20:09] VITALS: BP 100/64
[2024-02-15] MEDS: hydrOXYzine HCL 25 MG TABLET PO (20:09)
[2024-02-15] MEDS: traZODone HCL 50 MG TABLET PO (20:10)
[2024-02-16 08:00] VITALS: BP 111/55; PULSE 68; TEMP 36.6; O2SAT 100
[2024-02-16 08:36] VITALS: BP 111/55
[2024-02-16] MEDS: cloNIDine HCL 0.1 MG TABLET 0.05 MG PO ×2 (08:36→22:00)
[2024-02-16] MEDS: FLUoxetine HCl 20 MG CAPSULE 40 MG PO (08:37)
--- NOTE | 2024-02-16 15:31 | HO.PSYCHPN ---
Subjective Subjective Date of Service: 02/16/24 Reason For Visit: SI Interim History: in bed. not hostile today. reports clonidine started last NOC, slept OK last NOC. discussed adding wellbutrin for anti-depressant augmentation. per staff, c/o dep/anx. difficult to engage. better than friday. guarded. sleeping a lot. Mental Status Exam Mental Status Exam Narrative: disheveled, hospital attire. answering questions, calm and even. no PMA/PMR. speech nml rate, decr amount, decr loudness, flattened tone, nml latency. thoughts linear and logical. affect constricted, normo-intense, non-labile. mood depressed. no SI/SIBI/HI/AVH expressed. Diagnostics Vital Signs (24Hr): Vital Signs - 24 hr 02/15/24 20:00 02/15/24 20:09 02/16/24 08:00 Temperature 97.8 F 97.8 F Pulse Rate 64 68 Respiratory Rate 16 Blood Pressure 100/64 100/64 111/55 L Pulse Oximetry 98 100 Oxygen Delivery Method Room Air Room Air 02/16/24 08:36 Temperature Pulse Rate Respiratory Rate Blood Pressure 111/55 L Pulse Oximetry Oxygen Delivery Method BMI result Body Mass Index 35.5 Labs 02/11/24 00:35 02/11/24 00:35 Labs: Laboratory Results - last 48 hr 02/15/24 08:12 Estimat Average Glucose 88 Hemoglobin A1c % 4.7 Triglycerides 82 Cholesterol 160 LDL Cholesterol, Calc 95 HDL Cholesterol 49 Vitamin B12 306 Folate 8.7 TSH 3.37 Free T4 0.93 Medications Medications Current Medications Acetaminophen (Acetaminophen 325 Mg Tablet) 650 mg PO Q6H PRN PRN Reason: Headache/Pain Mild Scale (1-3) Last Admin: 02/14/24 20:38 Dose: 650 mg Al Hydroxide/Mg Hydroxide (Magnesium Hydrox/Alum Hydrox 30 Ml Oral.Susp) 30 ml PO Q6H PRN PRN Reason: Heartburn/Nausea Clonidine HCl (Clonidine Hcl 0.1 Mg Tablet) 0.05 mg PO BID [facility]; Protocol Last Admin: 02/16/24 08:36 Dose: 0.05 mg Fluoxetine HCl (Fluoxetine Hcl 20 Mg Capsule) 40 mg PO DAILY [facility] Last Admin: 02/16/24 08:37 Dose: 40 mg Hydroxyzine HCl (Hydroxyzine Hcl 25 Mg Tablet) 25 mg PO Q6H PRN PRN Reason: Anxiety Last Admin: 02/15/24 20:09 Dose: 25 mg Magnesium Hydroxide (Milk Of Magnesia 30 Ml Oral.Susp) 30 ml PO DAILY PRN PRN Reason: Constipation Nicotine Polacrilex (Nicotine Polacrilex 2 Mg Gum) 4 mg BUCCAL Q2H PRN PRN Reason: Nicotine Cravings Trazodone HCl (Trazodone Hcl 50 Mg Tablet) 50 mg PO BEDTIME MRX1 PRN PRN Reason: Insomnia Last Admin: 02/15/24 20:10 Dose: 50 mg Allergies Allergies Allergy/AdvReac Type Severity Reaction Status Date / Time No Known Allergies Allergy Verified 02/10/24 22:58 [No Known Allergies*] Assessment & Plan Assessment & Plan (1) Unspecified mood [affective] disorder: Status: Acute Code(s): F39 - Unspecified mood [affective] disorder (2) Cocaine use disorder: Status: Acute Code(s): F14.10 - Cocaine abuse, uncomplicated (3) Chronic post-traumatic stress disorder (PTSD): Status: Acute Code(s): F43.12 - Post-traumatic stress disorder, chronic Plan 02/11: start prozac 20 and clonidine 0.1/0.1/0.2 for PTSD/anxiety/depression. supportive care for cocaine withdrawal. refer for providers in the community. 02/12: continue prozac. clonidine DCed due to hypotension. pt advised to be up and about prior to having BP read. if BP improves, T/C starting doxazosin at low dose at HS for sleep/nightmares/anxiety. 02/13 prozac 40mg po daily. clonidine 0.05mg po BID. 02/14 continue tx. 02/15: continue current mgmt. depressed. isolative. T/C wellbutrin augmentation. Reason for continued inpatient stay Substantial Risk for: harm to self, inability to function and rapid decompensation Time Spent With Patient Time: Total time managing care of this patient today __25__ minutes.
[2024-02-16 20:00] VITALS: BP 108/56; PULSE 63; RESP 16; TEMP 37.3; O2SAT 99
[2024-02-16 22:00] VITALS: BP 108/59
[2024-02-16] MEDS: traZODone HCL 50 MG TABLET PO ×2 (22:00→23:35)
[2024-02-16] MEDS: hydrOXYzine HCL 25 MG TABLET PO (22:27)
[2024-02-17] MEDS: FLUoxetine HCl 20 MG CAPSULE 40 MG PO (08:33)
[2024-02-17 08:34] VITALS: BP 107/56
[2024-02-17] MEDS: cloNIDine HCL 0.1 MG TABLET 0.05 MG PO ×2 (08:34→21:22)
[2024-02-17 08:36] VITALS: BP 107/56; PULSE 60; RESP 14; TEMP 36.4; O2SAT 98
[2024-02-17] MEDS: buPROPion HCl XL 150 MG TAB.ER.24H PO (11:37)
--- NOTE | 2024-02-17 16:05 | HO.PSYCHPN ---
Subjective Subjective Date of Service: 02/17/24 Reason For Visit: SI Interim History: desiring addition of wellbutrin. R/B discussed, including Sz. pt agreeable to start at 150 for three days, then increase to 300. discuss tentative DC date of friday. appears a bit stronger than prior. per staff, taking meds. no SI/HI. depressive. in bed all day. slept. on phone briefly. Mental Status Exam Mental Status Exam Narrative: adequately dressed and groomed. answering questions, calm. no PMA/PMR. speech nml rate, decr amount, decr loudness, flattened tone, nml latency. thoughts linear and logical. affect constricted, normo-intense, non-labile. mood depressed. no SI/SIBI/HI/AVH expressed. Diagnostics Vital Signs (24Hr): Vital Signs - 24 hr 02/16/24 20:00 02/16/24 22:00 02/17/24 08:34 Temperature 99.1 F Pulse Rate 63 Respiratory Rate 16 Blood Pressure 108/56 L 108/59 L 107/56 L Pulse Oximetry 99 Oxygen Delivery Method Room Air 02/17/24 08:36 Temperature 97.6 F Pulse Rate 60 Respiratory Rate 14 Blood Pressure 107/56 L Pulse Oximetry 98 Oxygen Delivery Method Room Air BMI result Body Mass Index 35.5 Labs 02/11/24 00:35 02/11/24 00:35 Medications Medications Current Medications Acetaminophen (Acetaminophen 325 Mg Tablet) 650 mg PO Q6H PRN PRN Reason: Headache/Pain Mild Scale (1-3) Last Admin: 02/14/24 20:38 Dose: 650 mg Al Hydroxide/Mg Hydroxide (Magnesium Hydrox/Alum Hydrox 30 Ml Oral.Susp) 30 ml PO Q6H PRN PRN Reason: Heartburn/Nausea Bupropion HCl (Bupropion Hcl Xl 150 Mg Tab.Er.24h) 150 mg PO DAILY [facility] Stop: 02/19/24 09:01 Last Admin: 02/17/24 11:37 Dose: 150 mg Bupropion HCl (Bupropion Hcl Xl 300 Mg Tab.Er.24h) 300 mg PO DAILY [facility] Clonidine HCl (Clonidine Hcl 0.1 Mg Tablet) 0.05 mg PO BID [facility]; Protocol Last Admin: 02/17/24 08:34 Dose: 0.05 mg Fluoxetine HCl (Fluoxetine Hcl 20 Mg Capsule) 40 mg PO DAILY [facility] Last Admin: 02/17/24 08:33 Dose: 40 mg Hydroxyzine HCl (Hydroxyzine Hcl 25 Mg Tablet) 25 mg PO Q6H PRN PRN Reason: Anxiety Last Admin: 02/16/24 22:27 Dose: 25 mg Magnesium Hydroxide (Milk Of Magnesia 30 Ml Oral.Susp) 30 ml PO DAILY PRN PRN Reason: Constipation Nicotine Polacrilex (Nicotine Polacrilex 2 Mg Gum) 4 mg BUCCAL Q2H PRN PRN Reason: Nicotine Cravings Trazodone HCl (Trazodone Hcl 50 Mg Tablet) 50 mg PO BEDTIME MRX1 PRN PRN Reason: Insomnia Last Admin: 02/16/24 23:35 Dose: 50 mg Allergies Allergies Allergy/AdvReac Type Severity Reaction Status Date / Time No Known Allergies Allergy Verified 02/10/24 22:58 [No Known Allergies*] Assessment & Plan Assessment & Plan (1) Unspecified mood [affective] disorder: Status: Acute Code(s): F39 - Unspecified mood [affective] disorder (2) Cocaine use disorder: Status: Acute Code(s): F14.10 - Cocaine abuse, uncomplicated (3) Chronic post-traumatic stress disorder (PTSD): Status: Acute Code(s): F43.12 - Post-traumatic stress disorder, chronic Plan 02/11: start prozac 20 and clonidine 0.1/0.1/0.2 for PTSD/anxiety/depression. supportive care for cocaine withdrawal. refer for providers in the community. 02/12: continue prozac. clonidine DCed due to hypotension. pt advised to be up and about prior to having BP read. if BP improves, T/C starting doxazosin at low dose at HS for sleep/nightmares/anxiety. 02/13 prozac 40mg po daily. clonidine 0.05mg po BID. 02/14 continue tx. 02/15: continue current mgmt. depressed. isolative. T/C wellbutrin augmentation. 02/16: requesting wellbutrin. start today, increase to 300 friday. tentative DC date of friday. appears less wan, with more vital energies. Reason for continued inpatient stay Substantial Risk for: inability to function Time Spent With Patient Time: Total time managing care of this patient today _25___ minutes.
[2024-02-17 20:28] VITALS: BP 101/55; PULSE 60; RESP 16; TEMP 36.8; O2SAT 98
[2024-02-17] MEDS: traZODone HCL 50 MG TABLET PO (21:22)
[2024-02-17] MEDS: hydrOXYzine HCL 25 MG TABLET PO (21:30)
[2024-02-18 08:00] VITALS: BP 100/54; PULSE 78; RESP 18; TEMP 36.4; O2SAT 97
[2024-02-18] MEDS: Ondansetron ODT 4 MG TAB.RAPDIS TRANSLINGU (09:29)
[2024-02-18] MEDS: Loperamide HCl 2 MG CAPSULE PO (09:29)
[2024-02-18 10:04] LABS: IDNOW Serial# 58CA691E
[2024-02-18 10:05] LABS: COVID-19 Test Negative (Negative)
[2024-02-18] MEDS: buPROPion HCl XL 150 MG TAB.ER.24H PO (11:22)
[2024-02-18] MEDS: FLUoxetine HCl 20 MG CAPSULE 40 MG PO (11:22)
[2024-02-18 11:32] VITALS: BP 106/59
[2024-02-18] MEDS: cloNIDine HCL 0.1 MG TABLET 0.05 MG PO ×2 (11:32→20:44)
--- NOTE | 2024-02-18 13:14 | HO.PSYCHPN ---
Subjective Subjective Date of Service: 02/18/24 Reason For Visit: SI Interim History: pt feeling nauseated, started diarrhea overnight. no other complaints or requests. did not take medications this morning. per staff, dep 8 anx 7. isolative. +meds. slept well. had trazodone and hydroxyzine last NOC. Mental Status Exam Mental Status Exam Narrative: adequately dressed and groomed. answering questions, calm. no PMA/PMR. speech nml rate, decr amount, decr loudness, flattened tone, nml latency. thoughts linear and logical. affect constricted, normo-intense, non-labile. mood depressed. no SI/SIBI/HI/AVH expressed. Diagnostics Vital Signs (24Hr): Vital Signs - 24 hr 02/17/24 20:28 02/18/24 11:32 Temperature 98.3 F Pulse Rate 60 Respiratory Rate 16 Blood Pressure 101/55 L 106/59 L Pulse Oximetry 98 Oxygen Delivery Method Room Air BMI result Body Mass Index 35.5 Labs 02/11/24 00:35 02/11/24 00:35 Labs: Laboratory Results - last 48 hr 02/18/24 09:30 COVID-19 ([facility]) Negative COVID-19 Clin Com See Note Medications Medications Current Medications Acetaminophen (Acetaminophen 325 Mg Tablet) 650 mg PO Q6H PRN PRN Reason: Headache/Pain Mild Scale (1-3) Last Admin: 02/14/24 20:38 Dose: 650 mg Al Hydroxide/Mg Hydroxide (Magnesium Hydrox/Alum Hydrox 30 Ml Oral.Susp) 30 ml PO Q6H PRN PRN Reason: Heartburn/Nausea Bupropion HCl (Bupropion Hcl Xl 150 Mg Tab.Er.24h) 150 mg PO DAILY [facility] Stop: 02/19/24 09:01 Last Admin: 02/18/24 11:22 Dose: 150 mg Bupropion HCl (Bupropion Hcl Xl 300 Mg Tab.Er.24h) 300 mg PO DAILY [facility] Clonidine HCl (Clonidine Hcl 0.1 Mg Tablet) 0.05 mg PO BID [facility]; Protocol Last Admin: 02/18/24 11:32 Dose: 0.05 mg Fluoxetine HCl (Fluoxetine Hcl 20 Mg Capsule) 40 mg PO DAILY [facility] Last Admin: 02/18/24 11:22 Dose: 40 mg Hydroxyzine HCl (Hydroxyzine Hcl 25 Mg Tablet) 25 mg PO Q6H PRN PRN Reason: Anxiety Last Admin: 02/17/24 21:30 Dose: 25 mg Loperamide HCl (Loperamide Hcl 2 Mg Capsule) 2 mg PO Q6H PRN PRN Reason: Diarrhea Last Admin: 02/18/24 09:29 Dose: 2 mg Magnesium Hydroxide (Milk Of Magnesia 30 Ml Oral.Susp) 30 ml PO DAILY PRN PRN Reason: Constipation Nicotine Polacrilex (Nicotine Polacrilex 2 Mg Gum) 4 mg BUCCAL Q2H PRN PRN Reason: Nicotine Cravings Ondansetron HCl (Ondansetron Odt 4 Mg Tab.Rapdis) 4 mg TRANSLINGU Q8H PRN PRN Reason: Nausea and Vomiting Last Admin: 02/18/24 09:29 Dose: 4 mg Trazodone HCl (Trazodone Hcl 50 Mg Tablet) 50 mg PO BEDTIME MRX1 PRN PRN Reason: Insomnia Last Admin: 02/17/24 21:22 Dose: 50 mg Allergies Allergies Allergy/AdvReac Type Severity Reaction Status Date / Time No Known Allergies Allergy Verified 02/10/24 22:58 [No Known Allergies*] Assessment & Plan Assessment & Plan (1) Unspecified mood [affective] disorder: Status: Acute Code(s): F39 - Unspecified mood [affective] disorder (2) Cocaine use disorder: Status: Acute Code(s): F14.10 - Cocaine abuse, uncomplicated (3) Chronic post-traumatic stress disorder (PTSD): Status: Acute Code(s): F43.12 - Post-traumatic stress disorder, chronic Plan 02/11: start prozac 20 and clonidine 0.1/0.1/0.2 for PTSD/anxiety/depression. supportive care for cocaine withdrawal. refer for providers in the community. 02/12: continue prozac. clonidine DCed due to hypotension. pt advised to be up and about prior to having BP read. if BP improves, T/C starting doxazosin at low dose at HS for sleep/nightmares/anxiety. 02/13 prozac 40mg po daily. clonidine 0.05mg po BID. 02/14 continue tx. 02/15: continue current mgmt. depressed. isolative. T/C wellbutrin augmentation. 02/16: requesting wellbutrin. start today, increase to 300 friday. tentative DC date of friday. appears less wan, with more vital energies. 02/17: physically ill, did not receive meds this morning. may need to stay through the weekend to get properly started on wellbutrin. imodium for diarrhea and zofran for nausea started. continue current mgmt otherwise. Reason for continued inpatient stay Substantial Risk for: harm to self, harm to others and inability to function Time Spent With Patient Time: Total time managing care of this patient today __25__ minutes.
[2024-02-18 20:40] VITALS: BP 118/57; PULSE 103; RESP 18; TEMP 37.2; O2SAT 96
[2024-02-18] MEDS: hydrOXYzine HCL 25 MG TABLET PO (20:45)
[2024-02-18] MEDS: traZODone HCL 50 MG TABLET PO (20:45)
[2024-02-18] MEDS: Acetaminophen 325 MG TABLET 650 MG PO (21:03)
[2024-02-19 07:00] VITALS: BMI 35.9
[2024-02-19 08:00] VITALS: BP 92/50; PULSE 65; RESP 16; TEMP 36.5; O2SAT 97
[2024-02-19 09:28] VITALS: BP 99/57; PULSE 89
[2024-02-19] MEDS: cloNIDine HCL 0.1 MG TABLET 0.05 MG PO ×2 (09:28→22:01)
[2024-02-19] MEDS: FLUoxetine HCl 20 MG CAPSULE 40 MG PO (09:28)
--- NOTE | 2024-02-19 10:48 | HO.PSYCHPN ---
Subjective Subjective Date of Service: 02/19/24 Reason For Visit: SI Subjective Notes: Conditional Voluntary Interim History: In bed most of shift, napping. Pt reports feeling anxious and depressed ; denies SI/HI/VH/AH. Pt requesting to stay inpatient until Friday02/23/24 d/t the anniversary of my kids fathers passing is on Friday and I want to be somewhere safe . per nursing, slept 8 hours. Medication Compliance: Yes Side effects from medications: No Attending Groups: No Mental Status Exam Mental Status Exam Narrative: Pt is alert and oriented; behavior is cooperative and calm; dressed in casual attire; mood is described as anxious and depressed ; eye contact appropriate; Speech is normal rate, volume and not pressured; thought process is organized; Thought content is on tx; denies SI/HI/VH/AH. Diagnostics Vital Signs (24Hr): Vital Signs - 24 hr 02/18/24 11:32 02/18/24 20:40 02/19/24 08:00 Temperature 99.0 F 97.7 F Pulse Rate 103 H 65 Respiratory Rate 18 16 Blood Pressure 106/59 L 118/57 L 92/50 L Pulse Oximetry 96 97 Oxygen Delivery Method Room Air Room Air 02/19/24 09:28 Temperature Pulse Rate 89 Respiratory Rate Blood Pressure 99/57 L Pulse Oximetry Oxygen Delivery Method BMI result Body Mass Index 35.5 Labs 02/11/24 00:35 02/11/24 00:35 Labs: Laboratory Results - last 48 hr 02/18/24 09:30 COVID-19 ([facility]) Negative COVID-19 Clin Com See Note Medications Medications Current Medications Acetaminophen (Acetaminophen 325 Mg Tablet) 650 mg PO Q6H PRN PRN Reason: Headache/Pain Mild Scale (1-3) Last Admin: 02/18/24 21:03 Dose: 650 mg Al Hydroxide/Mg Hydroxide (Magnesium Hydrox/Alum Hydrox 30 Ml Oral.Susp) 30 ml PO Q6H PRN PRN Reason: Heartburn/Nausea Bupropion HCl (Bupropion Hcl Xl 300 Mg Tab.Er.24h) 300 mg PO DAILY [facility] Clonidine HCl (Clonidine Hcl 0.1 Mg Tablet) 0.05 mg PO BID [facility]; Protocol Last Admin: 02/19/24 09:28 Dose: 0.05 mg Fluoxetine HCl (Fluoxetine Hcl 20 Mg Capsule) 40 mg PO DAILY [facility] Last Admin: 02/19/24 09:28 Dose: 40 mg Hydroxyzine HCl (Hydroxyzine Hcl 25 Mg Tablet) 25 mg PO Q6H PRN PRN Reason: Anxiety Last Admin: 02/18/24 20:45 Dose: 25 mg Loperamide HCl (Loperamide Hcl 2 Mg Capsule) 2 mg PO Q6H PRN PRN Reason: Diarrhea Last Admin: 02/18/24 09:29 Dose: 2 mg Magnesium Hydroxide (Milk Of Magnesia 30 Ml Oral.Susp) 30 ml PO DAILY PRN PRN Reason: Constipation Nicotine Polacrilex (Nicotine Polacrilex 2 Mg Gum) 4 mg BUCCAL Q2H PRN PRN Reason: Nicotine Cravings Ondansetron HCl (Ondansetron Odt 4 Mg Tab.Rapdis) 4 mg TRANSLINGU Q8H PRN PRN Reason: Nausea and Vomiting Last Admin: 02/18/24 09:29 Dose: 4 mg Trazodone HCl (Trazodone Hcl 50 Mg Tablet) 50 mg PO BEDTIME MRX1 PRN PRN Reason: Insomnia Last Admin: 02/18/24 20:45 Dose: 50 mg Allergies Allergies Allergy/AdvReac Type Severity Reaction Status Date / Time No Known Allergies Allergy Verified 02/10/24 22:58 [No Known Allergies*] Assessment & Plan Assessment & Plan (1) Unspecified mood [affective] disorder: Status: Acute Code(s): F39 - Unspecified mood [affective] disorder (2) Cocaine use disorder: Status: Acute Code(s): F14.10 - Cocaine abuse, uncomplicated (3) Chronic post-traumatic stress disorder (PTSD): Status: Acute Code(s): F43.12 - Post-traumatic stress disorder, chronic Plan 02/11: start prozac 20 and clonidine 0.1/0.1/0.2 for PTSD/anxiety/depression. supportive care for cocaine withdrawal. refer for providers in the community. 02/12: continue prozac. clonidine DCed due to hypotension. pt advised to be up and about prior to having BP read. if BP improves, T/C starting doxazosin at low dose at HS for sleep/nightmares/anxiety. 02/13 prozac 40mg po daily. clonidine 0.05mg po BID. 02/14 continue tx. 02/15: continue current mgmt. depressed. isolative. T/C wellbutrin augmentation. 02/16: requesting wellbutrin. start today, increase to 300 friday. tentative DC date of friday. appears less wan, with more vital energies. 02/17: physically ill, did not receive meds this morning. may need to stay through the weekend to get properly started on wellbutrin. imodium for diarrhea and zofran for nausea started. continue current mgmt otherwise. 02/18: continue current tx plan. Patient educated on: diagnosis, medication risk/benefits and therapeutic strategies Reason for continued inpatient stay Substantial Risk for: med/psych decompensation Time Spent With Patient Time: Total time managing care of this patient today _20___ minutes.
[2024-02-19] MEDS: Loperamide HCl 2 MG CAPSULE PO (15:59)
[2024-02-19 21:18] VITALS: BP 108/64; PULSE 88; RESP 16; TEMP 36.8; O2SAT 98
[2024-02-19] MEDS: hydrOXYzine HCL 25 MG TABLET PO (22:01)
[2024-02-19] MEDS: traZODone HCL 50 MG TABLET PO (22:01)
[2024-02-20 08:38] VITALS: BP 105/58; PULSE 57; RESP 16; TEMP 37; O2SAT 98
[2024-02-20] MEDS: FLUoxetine HCl 20 MG CAPSULE 40 MG PO (09:00)
[2024-02-20] MEDS: buPROPion HCl XL 300 MG TAB.ER.24H PO (09:01)
--- NOTE | 2024-02-20 09:20 | HO.PSYCHPN ---
Subjective Subjective Date of Service: 02/20/24 Reason For Visit: SI Subjective Notes: Conditional Voluntary Interim History: Active on unit. Pt reports feeling anxious ; pt stated, I'm going to try to stay busy on Friday so I don't think so much . denies SI/HI/VH/AH. pt reports sleeping well. attending some groups. Medication Compliance: Yes Side effects from medications: No Attending Groups: Intermittent Mental Status Exam Mental Status Exam Narrative: Pt is alert and oriented; behavior is cooperative and calm; dressed in casual attire; mood is described as anxious and depressed ; eye contact appropriate; Speech is normal rate, volume and not pressured; thought process is organized; Thought content is on tx; denies SI/HI/VH/AH. Diagnostics Vital Signs (24Hr): Vital Signs - 24 hr 02/19/24 09:28 02/19/24 21:18 02/20/24 08:38 Temperature 98.3 F 98.6 F Pulse Rate 89 88 57 Respiratory Rate 16 16 Blood Pressure 99/57 L 108/64 105/58 L Pulse Oximetry 98 98 Oxygen Delivery Method Room Air Room Air BMI result Body Mass Index 35.9 Labs 02/11/24 00:35 02/11/24 00:35 Labs: Laboratory Results - last 48 hr 02/18/24 09:30 COVID-19 ([facility]) Negative COVID-19 Clin Com See Note Medications Medications Current Medications Acetaminophen (Acetaminophen 325 Mg Tablet) 650 mg PO Q6H PRN PRN Reason: Headache/Pain Mild Scale (1-3) Last Admin: 02/18/24 21:03 Dose: 650 mg Al Hydroxide/Mg Hydroxide (Magnesium Hydrox/Alum Hydrox 30 Ml Oral.Susp) 30 ml PO Q6H PRN PRN Reason: Heartburn/Nausea Bupropion HCl (Bupropion Hcl Xl 300 Mg Tab.Er.24h) 300 mg PO DAILY [facility] Last Admin: 02/20/24 09:01 Dose: 300 mg Clonidine HCl (Clonidine Hcl 0.1 Mg Tablet) 0.05 mg PO BID [facility]; Protocol Last Admin: 02/19/24 22:01 Dose: 0.05 mg Fluoxetine HCl (Fluoxetine Hcl 20 Mg Capsule) 40 mg PO DAILY [facility] Last Admin: 02/20/24 09:00 Dose: 40 mg Hydroxyzine HCl (Hydroxyzine Hcl 25 Mg Tablet) 25 mg PO Q6H PRN PRN Reason: Anxiety Last Admin: 02/19/24 22:01 Dose: 25 mg Loperamide HCl (Loperamide Hcl 2 Mg Capsule) 2 mg PO Q6H PRN PRN Reason: Diarrhea Last Admin: 02/19/24 15:59 Dose: 2 mg Magnesium Hydroxide (Milk Of Magnesia 30 Ml Oral.Susp) 30 ml PO DAILY PRN PRN Reason: Constipation Nicotine Polacrilex (Nicotine Polacrilex 2 Mg Gum) 4 mg BUCCAL Q2H PRN PRN Reason: Nicotine Cravings Ondansetron HCl (Ondansetron Odt 4 Mg Tab.Rapdis) 4 mg TRANSLINGU Q8H PRN PRN Reason: Nausea and Vomiting Last Admin: 02/18/24 09:29 Dose: 4 mg Trazodone HCl (Trazodone Hcl 50 Mg Tablet) 50 mg PO BEDTIME MRX1 PRN PRN Reason: Insomnia Last Admin: 02/19/24 22:01 Dose: 50 mg Allergies Allergies Allergy/AdvReac Type Severity Reaction Status Date / Time No Known Allergies Allergy Verified 02/10/24 22:58 [No Known Allergies*] Assessment & Plan Assessment & Plan (1) Unspecified mood [affective] disorder: Status: Acute Code(s): F39 - Unspecified mood [affective] disorder (2) Cocaine use disorder: Status: Acute Code(s): F14.10 - Cocaine abuse, uncomplicated (3) Chronic post-traumatic stress disorder (PTSD): Status: Acute Code(s): F43.12 - Post-traumatic stress disorder, chronic Plan 02/11: start prozac 20 and clonidine 0.1/0.1/0.2 for PTSD/anxiety/depression. supportive care for cocaine withdrawal. refer for providers in the community. 02/12: continue prozac. clonidine DCed due to hypotension. pt advised to be up and about prior to having BP read. if BP improves, T/C starting doxazosin at low dose at HS for sleep/nightmares/anxiety. 02/13 prozac 40mg po daily. clonidine 0.05mg po BID. 02/14 continue tx. 02/15: continue current mgmt. depressed. isolative. T/C wellbutrin augmentation. 02/16: requesting wellbutrin. start today, increase to 300 friday. tentative DC date of friday. appears less wan, with more vital energies. 02/17: physically ill, did not receive meds this morning. may need to stay through the weekend to get properly started on wellbutrin. imodium for diarrhea and zofran for nausea started. continue current mgmt otherwise. 02/18: continue current tx plan. 02/19: Active on unit. Pt reports feeling anxious ; pt stated, I'm going to try to stay busy on Friday so I don't think so much . denies SI/HI/VH/AH. pt reports sleeping well. attending some groups. Continue tx plan. Patient educated on: diagnosis, medication risk/benefits and therapeutic strategies Reason for continued inpatient stay Substantial Risk for: med/psych decompensation Time Spent With Patient Time: Total time managing care of this patient today _20___ minutes.
[2024-02-20 09:44] VITALS: BP 110/58; PULSE 72
[2024-02-20] MEDS: cloNIDine HCL 0.1 MG TABLET 0.05 MG PO ×2 (09:45→21:39)
[2024-02-20] MEDS: hydrOXYzine HCL 25 MG TABLET PO (20:05)
[2024-02-20] MEDS: traZODone HCL 50 MG TABLET PO (20:05)
[2024-02-20 21:30] VITALS: BP 108/55; PULSE 69; RESP 18; TEMP 36.9; O2SAT 97
--- NOTE | 2024-02-21 08:02 | HO.PSYCHPN ---
Subjective Subjective Date of Service: 02/21/24 Reason For Visit: SI Subjective Notes: Conditional Voluntary Interim History: Less anxious and depressed. Feeling supported and thankful to being on the unit for sons fathers who passed birthday tomorrow. Sleep ok. Meds ok. SOme groups. Denies SI/HI/VH/AH. Medication Compliance: Yes Side effects from medications: No Attending Groups: Yes Review of Systems Acute medical concerns: No Review of Systems Review of Systems unremarkable Mental Status Exam Mental Status Exam Narrative: Pt is alert and oriented; behavior is cooperative and calm; dressed in casual attire; mood is described as bit better today ; eye contact appropriate; Speech is normal rate, volume and not pressured; thought process is organized; Thought content is on tx; denies SI/HI/VH/AH. Diagnostics Vital Signs (24Hr): Vital Signs - 24 hr 02/20/24 08:38 02/20/24 09:44 02/20/24 21:30 Temperature 98.6 F 98.4 F Pulse Rate 57 72 69 Respiratory Rate 16 18 Blood Pressure 105/58 L 110/58 L 108/55 L Pulse Oximetry 98 97 Oxygen Delivery Method Room Air Room Air BMI result Body Mass Index 35.9 Labs 02/11/24 00:35 02/11/24 00:35 Medications Medications Current Medications Acetaminophen (Acetaminophen 325 Mg Tablet) 650 mg PO Q6H PRN PRN Reason: Headache/Pain Mild Scale (1-3) Last Admin: 02/18/24 21:03 Dose: 650 mg Al Hydroxide/Mg Hydroxide (Magnesium Hydrox/Alum Hydrox 30 Ml Oral.Susp) 30 ml PO Q6H PRN PRN Reason: Heartburn/Nausea Bupropion HCl (Bupropion Hcl Xl 300 Mg Tab.Er.24h) 300 mg PO DAILY [facility] Last Admin: 02/20/24 09:01 Dose: 300 mg Clonidine HCl (Clonidine Hcl 0.1 Mg Tablet) 0.05 mg PO BID [facility]; Protocol Last Admin: 02/20/24 21:39 Dose: 0.05 mg Fluoxetine HCl (Fluoxetine Hcl 20 Mg Capsule) 40 mg PO DAILY [facility] Last Admin: 02/20/24 09:00 Dose: 40 mg Hydroxyzine HCl (Hydroxyzine Hcl 25 Mg Tablet) 25 mg PO Q6H PRN PRN Reason: Anxiety Last Admin: 02/20/24 20:05 Dose: 25 mg Loperamide HCl (Loperamide Hcl 2 Mg Capsule) 2 mg PO Q6H PRN PRN Reason: Diarrhea Last Admin: 02/19/24 15:59 Dose: 2 mg Magnesium Hydroxide (Milk Of Magnesia 30 Ml Oral.Susp) 30 ml PO DAILY PRN PRN Reason: Constipation Nicotine Polacrilex (Nicotine Polacrilex 2 Mg Gum) 4 mg BUCCAL Q2H PRN PRN Reason: Nicotine Cravings Ondansetron HCl (Ondansetron Odt 4 Mg Tab.Rapdis) 4 mg TRANSLINGU Q8H PRN PRN Reason: Nausea and Vomiting Last Admin: 02/18/24 09:29 Dose: 4 mg Trazodone HCl (Trazodone Hcl 50 Mg Tablet) 50 mg PO BEDTIME MRX1 PRN PRN Reason: Insomnia Last Admin: 02/20/24 20:05 Dose: 50 mg Allergies Allergies Allergy/AdvReac Type Severity Reaction Status Date / Time No Known Allergies Allergy Verified 02/10/24 22:58 [No Known Allergies*] Assessment & Plan Assessment & Plan (1) Unspecified mood [affective] disorder: Status: Acute Code(s): F39 - Unspecified mood [affective] disorder (2) Cocaine use disorder: Status: Acute Code(s): F14.10 - Cocaine abuse, uncomplicated (3) Chronic post-traumatic stress disorder (PTSD): Status: Acute Code(s): F43.12 - Post-traumatic stress disorder, chronic Plan 02/11: start prozac 20 and clonidine 0.1/0.1/0.2 for PTSD/anxiety/depression. supportive care for cocaine withdrawal. refer for providers in the community. 02/12: continue prozac. clonidine DCed due to hypotension. pt advised to be up and about prior to having BP read. if BP improves, T/C starting doxazosin at low dose at HS for sleep/nightmares/anxiety. 02/13 prozac 40mg po daily. clonidine 0.05mg po BID. 02/14 continue tx. 02/15: continue current mgmt. depressed. isolative. T/C wellbutrin augmentation. 02/16: requesting wellbutrin. start today, increase to 300 friday. tentative DC date of friday. appears less wan, with more vital energies. 02/17: physically ill, did not receive meds this morning. may need to stay through the weekend to get properly started on wellbutrin. imodium for diarrhea and zofran for nausea started. continue current mgmt otherwise. 02/18: continue current tx plan. 02/19: Active on unit. Pt reports feeling anxious ; pt stated, I'm going to try to stay busy on Friday so I don't think so much . denies SI/HI/VH/AH. pt reports sleeping well. attending some groups. Continue tx plan. 02/20: no changes. Feeling supported Reason for continued inpatient stay Substantial Risk for: rapid decompensation Time Spent With Patient Time: Total time managing care of this patient today ____ minutes.
[2024-02-21 20:00] VITALS: BP 122/60; PULSE 81; RESP 16; TEMP 36.6; O2SAT 98
[2024-02-21] MEDS: cloNIDine HCL 0.1 MG TABLET 0.05 MG PO (21:20)
[2024-02-21] MEDS: traZODone HCL 50 MG TABLET PO (21:20)
[2024-02-21] MEDS: Acetaminophen 325 MG TABLET 650 MG PO (21:31)
[2024-02-21] MEDS: hydrOXYzine HCL 25 MG TABLET PO (21:32)
--- NOTE | 2024-02-22 10:24 | HO.PSYCHPN ---
Subjective Subjective Date of Service: 02/22/24 Reason For Visit: SI Interim History: In room alot this morning but also feeling supported and thankful to being on the unit for sons fathers who passed birthday today. Sleep ok. Meds ok. Denies SI/HI/VH/AH. Medication Compliance: Yes Side effects from medications: No Attending Groups: Intermittent Review of Systems Acute medical concerns: No Review of Systems Review of Systems unremarkable Mental Status Exam Mental Status Exam Narrative: Pt is alert and oriented; behavior is cooperative and calm; dressed in casual attire; mood is described as its tough today ; eye contact appropriate; Speech is normal rate, volume and not pressured; thought process is organized; Thought content is on tx; denies SI/HI/VH/AH. Diagnostics Vital Signs (24Hr): Vital Signs - 24 hr 02/21/24 20:00 Temperature 97.8 F Pulse Rate 81 Respiratory Rate 16 Blood Pressure 122/60 Pulse Oximetry 98 Oxygen Delivery Method Room Air BMI result Body Mass Index 35.9 Labs 02/11/24 00:35 02/11/24 00:35 Medications Medications Current Medications Acetaminophen (Acetaminophen 325 Mg Tablet) 650 mg PO Q6H PRN PRN Reason: Headache/Pain Mild Scale (1-3) Last Admin: 02/21/24 21:31 Dose: 650 mg Al Hydroxide/Mg Hydroxide (Magnesium Hydrox/Alum Hydrox 30 Ml Oral.Susp) 30 ml PO Q6H PRN PRN Reason: Heartburn/Nausea Bupropion HCl (Bupropion Hcl Xl 300 Mg Tab.Er.24h) 300 mg PO DAILY [facility] Last Admin: 02/22/24 09:25 Dose: Not Given Clonidine HCl (Clonidine Hcl 0.1 Mg Tablet) 0.05 mg PO BID [facility]; Protocol Last Admin: 02/22/24 09:25 Dose: Not Given Fluoxetine HCl (Fluoxetine Hcl 20 Mg Capsule) 40 mg PO DAILY [facility] Last Admin: 02/22/24 09:26 Dose: Not Given Hydroxyzine HCl (Hydroxyzine Hcl 25 Mg Tablet) 25 mg PO Q6H PRN PRN Reason: Anxiety Last Admin: 02/21/24 21:32 Dose: 25 mg Loperamide HCl (Loperamide Hcl 2 Mg Capsule) 2 mg PO Q6H PRN PRN Reason: Diarrhea Last Admin: 02/19/24 15:59 Dose: 2 mg Magnesium Hydroxide (Milk Of Magnesia 30 Ml Oral.Susp) 30 ml PO DAILY PRN PRN Reason: Constipation Nicotine Polacrilex (Nicotine Polacrilex 2 Mg Gum) 4 mg BUCCAL Q2H PRN PRN Reason: Nicotine Cravings Ondansetron HCl (Ondansetron Odt 4 Mg Tab.Rapdis) 4 mg TRANSLINGU Q8H PRN PRN Reason: Nausea and Vomiting Last Admin: 02/18/24 09:29 Dose: 4 mg Trazodone HCl (Trazodone Hcl 50 Mg Tablet) 50 mg PO BEDTIME MRX1 PRN PRN Reason: Insomnia Last Admin: 02/21/24 21:20 Dose: 50 mg Allergies Allergies Allergy/AdvReac Type Severity Reaction Status Date / Time No Known Allergies Allergy Verified 02/10/24 22:58 [No Known Allergies*] Assessment & Plan Assessment & Plan (1) Unspecified mood [affective] disorder: Status: Acute Code(s): F39 - Unspecified mood [affective] disorder (2) Cocaine use disorder: Status: Acute Code(s): F14.10 - Cocaine abuse, uncomplicated (3) Chronic post-traumatic stress disorder (PTSD): Status: Acute Code(s): F43.12 - Post-traumatic stress disorder, chronic Plan 02/11: start prozac 20 and clonidine 0.1/0.1/0.2 for PTSD/anxiety/depression. supportive care for cocaine withdrawal. refer for providers in the community. 02/12: continue prozac. clonidine DCed due to hypotension. pt advised to be up and about prior to having BP read. if BP improves, T/C starting doxazosin at low dose at HS for sleep/nightmares/anxiety. 02/13 prozac 40mg po daily. clonidine 0.05mg po BID. 02/14 continue tx. 02/15: continue current mgmt. depressed. isolative. T/C wellbutrin augmentation. 02/16: requesting wellbutrin. start today, increase to 300 friday. tentative DC date of friday. appears less wan, with more vital energies. 02/17: physically ill, did not receive meds this morning. may need to stay through the weekend to get properly started on wellbutrin. imodium for diarrhea and zofran for nausea started. continue current mgmt otherwise. 02/18: continue current tx plan. 02/19: Active on unit. Pt reports feeling anxious ; pt stated, I'm going to try to stay busy on Friday so I don't think so much . denies SI/HI/VH/AH. pt reports sleeping well. attending some groups. Continue tx plan. 02/21: no changes. Feeling supported Reason for continued inpatient stay Substantial Risk for: harm to self Time Spent With Patient Time: Total time managing care of this patient today ____ minutes.
[2024-02-22] MEDS: hydrOXYzine HCL 25 MG TABLET PO ×2 (12:45→21:22)
[2024-02-22 13:44] VITALS: BP 111/70; PULSE 79
[2024-02-22] MEDS: cloNIDine HCL 0.1 MG TABLET 0.05 MG PO ×2 (13:46→21:22)
[2024-02-22] MEDS: buPROPion HCl XL 300 MG TAB.ER.24H PO (13:47)
[2024-02-22] MEDS: FLUoxetine HCl 20 MG CAPSULE 40 MG PO (13:47)
[2024-02-22 20:10] VITALS: BP 109/54; PULSE 58; RESP 16; TEMP 36.6; O2SAT 99
[2024-02-22] MEDS: traZODone HCL 50 MG TABLET PO (21:22)
[2024-02-22] MEDS: Acetaminophen 325 MG TABLET 650 MG PO (21:23)
[2024-02-23 09:32] VITALS: BP 111/61
[2024-02-23] MEDS: FLUoxetine HCl 20 MG CAPSULE 40 MG PO (09:32)
[2024-02-23] MEDS: cloNIDine HCL 0.1 MG TABLET 0.05 MG PO (09:32)
[2024-02-23] MEDS: buPROPion HCl XL 300 MG TAB.ER.24H PO (09:33)
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
[2024-02-23] MEDS: Naloxone HCl Nasal TAKE HOME 4 MG SPRAY 8 MG NOSTRILALT (10:21)
== END 2024-02-23 11:32 | disposition home or self-care (01) | DRG 754 ==
LOC: HO.ED 02-11 00:27 → HO.PADLT16 02-11 15:10
PROVIDERS: Nurse Practitioner Family; Admitting Provider Psychiatry & Neurology Psychiatry; Emergency Provider Emergency Medicine Emergency Medical Services; Visit Provider Psychiatry & Neurology Psychiatry
DX: F32.9 Major depressive disorder, single episode, unspecified (principal); R45.851 Suicidal ideations; F43.12 Post-traumatic stress disorder, chronic; F14.10 Cocaine abuse, uncomplicated; F17.210 Nicotine dependence, cigarettes, uncomplicated; Z71.6 Tobacco abuse counseling; Z20.822 Contact with and (suspected) exposure to COVID-19; Z79.899 Other long term (current) drug therapy
CPT/HCPCS: 36415; 80053; 80061; 80307; 81001; 82607; 82746; 83036; 84439; 84443; 84702; 85025; 87086; 87635; 93005; 99285; S9485

== ENCOUNTER → 2024-02-11 13:50 | Outpatient (BNV) | payer MEDICAID, SELFPAY | PROVIDERS: Admitting Provider Psychiatry & Neurology Psychiatry; Emergency Provider Emergency Medicine Emergency Medical Services; Visit Provider Internal Medicine Cardiovascular Disease | DX: R41.82 Altered mental status, unspecified (principal) | CPT/HCPCS: 93010 ==

== ENCOUNTER → 2024-02-11 15:02 | Outpatient (BNV) | payer OTHER, SELFPAY | PROVIDERS: Admitting Provider Psychiatry & Neurology Psychiatry; Emergency Provider Emergency Medicine Emergency Medical Services; Visit Provider Psychiatry & Neurology Psychiatry | DX: F39 Unspecified mood [affective] disorder (principal); F14.10 Cocaine abuse, uncomplicated; F43.12 Post-traumatic stress disorder, chronic | CPT/HCPCS: 99231; 99232; 99233 ==